=== PATIENT | female | born 1940 | race Caucasian/White ===

== ENCOUNTER 2016-07-10 06:02 | Inpatient (IN) | payer MEDICARE, OTHER ==
[2016-07-10] VITALS (12 sets, daily range): BP systolic 93–144; BP diastolic 41–81; PULSE 86–128; RESP 16–26; O2SAT 87–97
[~2016-07-10] VITALS: Ht 167.6 cm; Wt 92.6 kg
[~2016-07-10 06:02] MED LIST: ACET325C PO; ASPI-973 PO; CHOL400T PO; CLOP75TA28 PO; CYAN500T53 PO; DETROL LA4 M1 PO; DIPH25CA6 PO; ESOM40CA41 PO; ESTR1PAT80 TRANSDERM; FLAX100038 PO; FLUO10CA20 PO; FLUT16SP NS; GABA800T2 PO; GARL1TAB PO; GLUC-207 PO; LEVO100T6 PO; LOVA20TA PO; METO25TA99 PO; MULT-666 PO; MYCO500T3 PO; NITR0.4T SL; NYST15PO5 TP; ONDA4TAB12 PO; OXYC1TAB24 PO; PENT400T PO; POLY17PO6 PO; PYR50 PO; TRAM50TA2 PO; UBID300C PO; VITA1CAP16 PO; VITA400C19 PO
--- NOTE | 2016-07-10 06:08 | ED.REPORT ---
HPI-Chest Pain 40 and Over Date of Service Jul 10, 2016 ED Provider: Leodan Jennings MD A 75 year old female with a history of hypertension, hyperlipidemia, hemochromatosis, severe PVD and inclusion body myositis presents to the ED via EMS complaining of left sided chest pain that began yesterday. The pain became increasingly worse this morning and has been intermittent since onset. She also reports mild SOB, subjective fever, productive cough with yellow sputum and pain that radiates to her shoulder. Patient states that her pain was relieved by Tylenol and exacerbated by deep breath. Patient was admitted on 03/10 for PVD and was discharged s/p PCI on 03/15 in good condition. Patient is currently taking aspirin, Decadron and levothyroxine. She denies nausea, vomiting, dizziness, lightheadedness, palpitations, sore throat or rhinorrhea. Patient denies any recent injury, long travels or recent surgeries. Nursing Notes Stated Complaint: CHEST PAIN Nursing Notes Reviewed: Yes Allergies: Coded Allergies: pantoprazole (Verified Allergy, Intermediate, Nausea,Vomiting, 03/10/16) Penicillins (Verified Allergy, Unknown, Shortness of Breath, 03/10/16) Sulfa (Sulfonamide Antibiotics) (Verified Allergy, Unknown, 03/10/16) Scheduled Aspirin (Aspirin) 81 Mg Tablet 81 MG PO HS Cholecalciferol (Vitamin D3) (Vitamin D3) 2,000 Unit Capsule 2,000 UNIT PO DAILY Dexamethasone (Dexamethasone) 1 Mg Tab 2 MG PO DAILY Esomeprazole Magnesium (Nexium) 40 Mg Capsule.dr 40 MG PO BIDAC NEEDS TO TAKE NEXIUM! GENERIC CAUSES UPSET STOMACH! Gabapentin (Gabapentin) 800 Mg Tablet 800 MG PO HS Garlic (Garlic) 1 Each Tablet 1 EACH PO DAILY Gluc/MSM/C/[place]/Manganese/Kayli (Joint Support Complex Softgel) 500-100 Mg Capsule 1 TAB PO DAILY Levothyroxine (Levothyroxine) 100 Mcg Tablet 100 MCG PO QPM Losartan Potassium (Cozaar) 25 Mg Tablet 25 MG PO DAILY Lovastatin (Lovastatin) 20 Mg Tablet 20 MG PO HS Metoprolol Succinate ER (Metoprolol Succinate ER) 25 Mg Tab.er.24h 25 MG PO HS Mirtazapine (Mirtazapine) 7.5 Mg Tablet 7.5 MG PO HS Multivitamin (Once Daily) 1 Each Tablet 1 EACH PO DAILY Mycophenolate Mofetil (Mycophenolate Mofetil) 500 Mg Tablet 1,000 MG PO BID 3pm,3am [place]-3/Dha/Epa/Fish Oil ([place] 3 500 Softgel) 500 Mg (200 Mg-300 Mg)-1,000 Mg Capsule 1 EACH PO DAILY Pentoxifylline (Pentoxifylline) 400 Mg Tablet.er 400 MG PO TIDWM Polyethylene Glycol 3350 (Miralax) 17 Gm Powd.pack 17 GM PO MORNING Pyridoxine (Vitamin B-6) 50 Mg Tablet 100 MG PO DAILY Telmisartan/HCTZ 80-12.5 mg (Micardis HCT 80-12.5 mg) 1 Each Tablet 1 TABLET PO DAILY Tolterodine Tartrate ER (Detrol LA) 4 Mg Capsule 4 MG PO DAILY Ubidecarenone (Co Q10) 100 Mg Capsule 200 MG PO DAILY Scheduled PRN Acetaminophen (Acetaminophen) 325 Mg Capsule 325 MG PO Q4H PRN PRN For Pain Tramadol (Tramadol) 50 Mg Tablet 50 MG PO Q6H PRN PRN For Pain Miscellaneous Medications Estradiol Patch (Marta) 1 Each Patch.tdsw 1 EACH TRANSDERM General Time Seen by MD: 06:03 Chief Complaint Chest pain Hx Obtained From: Patient Arrived By: Ambulance Sudden in Onset?: No Onset Occurred: Just prior to arrival Symptom Duration: Since onset Location: : Chest left Quality: Painful Radiation: : Does not radiate Severity: Current: Moderate Severity: Maximum: Moderate Associated with: Reports: Fever (Subjective ), Shortness of Breath, Denies: Cough, non-productive, Cough, productive, Cough, with hemoptysis, Dizziness, Lightheaded, Nausea, Palpitations, Vomiting Pertinent Negative: Pt denies other symptoms Exacerbated by: Deep breath Relieved by: OTC medications (Tylenol) Recent Healthcare: No recent doctor visit, Recent hospitalization Risk Factors )( CAD Risk Stratification Hypertension Risk factors reviewed )( TAD Risk Stratification Hypertension Risk factors reviewed )( PE Risk Stratification Risk factors reviewed Past Medical History Past Medical History Inclusion body myositis Borderline diabetes [place] Hypertension Hemochromatosis Hyperlipidemia Depression Gastroesophageal reflux disease Past Surgical History 1. Appendectomy 2. Hysterectomy 3. Cholecystectomy 4. Section 5. ORIF, Right Knee Family History Father - at age 53 from an [place] Mother - at age 62 from Congestive Heart Failure Smoking History Former Smoker Social History Alcohol Use: Denies alcohol use Drug Use: Denies drug use Other Social History: Good social support, Local resident Ambulatory Status Wheelchair Review of Systems Constitutional: Denies: Chills, Fever Respiratory: Reports: Prod cough, yellow, Shortness of breath (Mild ) Cardiovascular: Reports: Chest pain (Left sided ), Denies: Palpitations GI: Denies: Abdominal pain, Nausea, Vomiting Neurologic: Denies: Change LOC, Dizziness, Lightheaded Complete sys rev & neg: except as marked. Physical Exam Initial Vital Signs Vital Signs (First) Date Time Temp Pulse Resp B/P Pulse Ox O2 Delivery O2 Flow Rate FiO2 07/10/16 06:18 36.6 114 24 95/41 92 Room Air 07/10/16 06:26 2 Initial VS: Reviewed Head / Eyes: Atraumatic, Normocephalic, PERRL Extremities: Vascular intact, Neuro intact, No swelling, No tenderness Skin: Warm, Dry, No cyanosis Neurologic: Alert, Oriented, Nonfocal Psychiatric: Mood/affect normal, Behavior normal, Normal thought content General/Constitutional: Awake, Alert Respiratory / Chest: Atraumatic, Breath sounds NL, Breath sounds = bilat, No respiratory distress CHEST: Chest pain reporducible upon exam Cardiovascular: Regular rhythm, Heart sounds NL, No murmurs Heart Rate / Rhythm: Positive: Tachycardia Abdomen: Atraumatic, Soft, Non-tender Interpretation & Diagnostics Lab Results Interpretation Result Diagram: 07/10/16 0620 07/10/16 0620 Test 07/10/16 06:20 07/10/16 09:10 White Blood Count 18.1th/mm3 (3.8-10.1) Red Blood Count 5.28mil/mm3 (3.90-5.20) Hemoglobin 14.2g/dL (12.0-15.6) Hematocrit 45.8% (35.0-46.0) Mean Corpuscular Volume 86.7fL (81-100) Mean Corpuscular Hemoglobin 26.9pg (27.0-35.0) Mean Corpuscular Hemoglobin Concent 31.0% (32.0-37.0) Red Cell Distribution Width 15.5% (12.3-15.4) Platelet Count 348bil/L (150-400) Neutrophils (%) (Auto) 83.6% (40-74) Lymphocytes (%) (Auto) 5.4% (14-46) Monocytes (%) (Auto) 10.2% (4-12) Eosinophils (%) (Auto) 0.4% (0-5) Basophils (%) (Auto) 0.1% (0-3) D-Dimer 1.5mg/L (<0.50) Sodium Level 143mEq/L (134-144) Potassium Level 4.0mEq/L (3.5-5.2) Chloride Level 100mEq/L (97-108) Carbon Dioxide Level 27mmol/L (18-29) Blood Urea Nitrogen 12mg/dL (8-27) Creatinine < 0.30mg/dL (0.57-1.00) Estimat Glomerular Filtration Rate 312mL/min (>59) Glucose Level 121mg/dL (60-99) Calcium Level 9.9mg/dL (8.5-10.1) Magnesium Level 1.8mg/dL (1.6-2.6) Total Bilirubin 0.5mg/dL (0.0-1.2) Aspartate Amino Transf (AST/SGOT) 24U/L (0-50) Alanine Aminotransferase (ALT/SGPT) 17U/L (0-32) Alkaline Phosphatase 91U/L (25-165) Troponin T 0.055ug/L (0.0-0.011) Pro-B-Type Natriuretic Peptide 476.5pg/mL (0-301) Total Protein 7.2g/dL (6.4-8.4) Albumin 3.6g/dL (3.4-5.0) Lactic Acid Level 1.4mmol/L (0.4-2.0) ECG Interpretation ECG Interpretation: Sinus Tachycardia Q waves in [address] elevation Time: 06:11 Interpreted by: ED physician Normal ECG Interpretation: No change from prior ECGs (Q waves unchanged) X-Ray Chest Interpretation Chest Xray Interpretation: IMPRESSION: New moderate dependent left pleural effusion is of uncertain etiology, with presumed retrocardiac compressive atelectasis. Superimposed pneumonia cannot be excluded. Dictated by: Bharath Feng M.D. on 07/10/2016 at 7:27 Interpretation / Wet Read by: Interpret - Radiologist CT Chest Interpretation IMPRESSION: 1. No evidence for central pulmonary embolism. 2. Partially loculated moderate left pleural effusion is of uncertain etiology, with patchy left lower lobe compressive atelectasis. 3. 3.8 x 3.0 cm posterior right lower lobe subpleural airspace opacity is of uncertain etiology. Differential diagnoses would include localized pneumonia versus underlying lung neoplasm. Pulmonary infarct is considered unlikely in the absence of any pulmonary embolism. 4. 3.1 x 2.5 cm complex cystic nodule in the left thyroid. Recommend dedicated thyroid ultrasound for further characterization, and to determine the need for image guided fine needle aspiration. Dictated by: Bharath Feng M.D. on 07/10/2016 at 8:26 Study type: CT pulm angiogram Interpretation / Wet Read by: Interpret - Radiologist Re-Eval/Medical Decision Med Decision/Clinical Course 75-year-old female history of hemachromatosis, hypertension, hyperlipidemia presenting with left-sided chest pain times one day. Also cough productive blood in sputum at times. She is being treated for bronchitis and is on oral steroids. Oxygen 88% on arrival requiring 2 L. D-dimer 1.5. Troponins 0.05 which is consistent with her baseline. White blood cell count is 18,000 and she is on steroids. CT [place] chest shows left pleural effusion which was not evident on x-ray in March of last year. No PE. Also has questionable pneumonia and cannot rule out malignancy. Patient will be treated with Levaquin for her pneumonia. Defer possible malignancy workup to hospitalist may need diagnostic thoracentesis vs bronchoscopy. EKG NSR. Given aspirin 324mg and will trend troponins. Will hold off on heparin gtt given hemoptysis and likely pulmonary source pending repeat troponins. She is placed on oxygen. We will admit to hospital. DNR/DNI per discussion with patient. Time of Eval: 09:03 Patient Status: Condition improved Re-Evaluation/Progress Note: Patient is rechecked. She is feeling much better. She is informed of her lab results, EKG results, X-ray results, CT results and diagnosis. Time of Eval: 09:06 Patient Status: Condition improved Re-Evaluation/Progress Note: All of the patient's questions are addressed. She understands and agrees with the treatment plan to admit. Code status is discussed. Patient is DNR/DNI. Consultation : Referral / Consult Name: Keller,Kirsten L DO Consulted With: Hospitalist Call Returned at: 10:43 Cell Room Supervisor: Will see patient, Agrees with eval, Agrees with plan, Accepts admit Counseled Regarding: Diagnosis, Lab results, Need for admission Discharge & Departure Primary Impression: Pleural effusion Additional Impressions: Elevated troponin Pneumonia Pneumonia type: due to unspecified organism Laterality: left Lung location : unspecified part of lung Qualified Code: J18.9 - Pneumonia, unspecified organism Disposition: ADMITTED TO HOSPITAL Discharge Condition All VS Reviewed: Yes Condition: Stable Referrals: Jamey Presley MD (PCP) Yuni Attestation Portions of this note were transcribed by Dannielle Dawson. I, Dr. Jennings personally performed the history, physical exam and medical decision-making; I reviewed and confirmed the accuracy of the information in the transcribed note. Signed by: Yuni Celestin, 07/10/16 1050. copies to: Jamey Presley MD, Ben M MD Jul 10, 2016 06:08 DANNIELLE DAWSON Jul 10, 2016 06:24
[2016-07-10] MEDS ORDERED: 0.9% Sodium Chloride 500 ML IV ONE (06:20)
[2016-07-10] MEDS ORDERED: Ketorolac 15 mg/mL Inj IVPUSH ONE (06:20)
[2016-07-10 06:34] LABS: BASOPHILS % (AUTO) 0.1 % (0-3); EOSINOPHILS % (AUTO) 0.4 % (0-5); MONOCYTES % (AUTO) 10.2 % (4-12); Mean Corpuscular Hemoglobin 26.9 pg (27.0-35.0); Mean Corpuscular Volume 86.7 fL (81-100); NEUTROPHILS % (AUTO) 83.6 % (40-74); Platelet Count 348 bil/L (150-400)
[2016-07-10 07:22] LABS: Magnesium 1.8 mg/dL (1.6-2.6)
--- NOTE | 2016-07-10 07:30 | DRSVH ---
PROCEDURE: X-RAY CHEST ONE VIEW, PORTABLE ([id number]) INDICATIONS: 75 year-old female with left chest pain since last night. TECHNIQUE: One view of the chest was acquired. COMPARISON: [facility], CR, XR CHEST 2V AP/PA AND LAT, 05/07/2016, 10:58 AM. [facility], CR, XR CHEST 1VW (PORTABLE), 03/10/2016, 12:18. [facility], CR, XR CHEST 1VW (PORTABLE), 11/28/2015, 18:35. FINDINGS: Surgical changes and devices: Cholecystectomy clips are again noted. Lungs and pleura: There is new moderate dependent left pleural effusion. No pneumothorax. Lung volume s are decreased, with right basilar atelectasis. There is more confluent retrocardiac opacity. Mediastinum: Mediastinal contours appear normal. Heart size is normal. There is aortic atheroscler osis. Bones and chest wall: No suspicious bony lesions. Overlying soft tissues appear unremarkable. IMPRESSION: New moderate dependent left pleural effusion is of uncertain etiology, with presumed retrocardiac com pressive atelectasis. Superimposed pneumonia cannot be excluded. Dictated by: Bharath Feng M.D. on 07/10/2016 at 7:27 Approved by: Bharath Feng M.D. on 07/10/2016 at 7:28
[2016-07-10 07:46] LABS: TROPONIN T 0.055 ug/L (0.0-0.011)
--- NOTE | 2016-07-10 08:40 | DRSVH ---
PROCEDURE: CT ANGIO CHEST PULMONARY EMBOLISM ([id number]) INDICATIONS: 75 year-old female with chest pain and elevated d-dimer level. TECHNIQUE: After the administration of intravenous contrast, 2 mm thick sections acquired from the pulmonary api tamika to the posterior costophrenic angles. 3-dimensional maximum intensity projection (MIP) coronal a nd sagittal reformats were then acquired through the thorax. For radiation dose reduction, the follo wing was used: automated exposure control, adjustment of mA and/or kV according to patient size. COMPARISON: None. FINDINGS: Image quality: Excellent. Pulmonary arteries: Pulmonary arteries are upper normal in size, and demonstrate no intraluminal khloe ling defects to suggest central pulmonary embolism. Lungs and pleura: There is patchy left lower lobe compressive atelectasis. On axial image 24, there i s 3.8 x 3.0 cm posterior right lower lobe airspace opacity. There is partially loculated moderate-siz ed basal and lateral left pleural effusion. No pneumothorax. Central and peripheral airways are james nt. Mediastinum: There is mild cardiomegaly, without pericardial effusion. No mediastinal or hilar adeno tim. Thoracic aorta is normal in caliber and enhancement. Esophagus is normal in caliber, without hiatal hernia. Bones and chest wall: No suspicious bony lesions. Ribs and thoracic spine appear intact throughout. Thyroid gland contains a 3.1 x 2.5 cm thick walled cystic lesion in the left lobe. No axillary or supraclavicular adenopathy. Abdomen: The gallbladder is surgically absent. Other visualized upper abdominal solid organs appear n ormal in the early arterial phase of enhancement. IMPRESSION: 1. No evidence for central pulmonary embolism. 2. Partially loculated moderate left pleural effusion is of uncertain etiology, with patchy left lowe r lobe compressive atelectasis. 3. 3.8 x 3.0 cm posterior right lower lobe subpleural airspace opacity is of uncertain etiology. Diff erential diagnoses would include localized pneumonia versus underlying lung neoplasm. Pulmonary infar ct is considered unlikely in the absence of any pulmonary embolism. 4. 3.1 x 2.5 cm complex cystic nodule in the left thyroid. Recommend dedicated thyroid ultrasound for further characterization, and to determine the need for image guided fine needle aspiration. Dictated by: Bharath Feng M.D. on 07/10/2016 at 8:26 Approved by: Bharath Feng M.D. on 07/10/2016 at 8:38
[2016-07-10] MEDS ORDERED: ESTR1PAT44 TRANSDERM (08:52)
[2016-07-10] MEDS ORDERED: UBID100C27 PO (08:52)
[2016-07-10] MEDS ORDERED: CHOL200047 PO (08:52)
[2016-07-10] MEDS ORDERED: 0.9% Sodium Chloride 1,000 ML IV ONE (08:58)
[2016-07-10] MEDS ORDERED: LOVA20TA PO (08:59)
[2016-07-10] MEDS ORDERED: GARL1TAB PO (08:59)
[2016-07-10] MEDS ORDERED: DEX1 PO (08:59)
[2016-07-10] MEDS ORDERED: OMEG-145 PO (08:59)
[2016-07-10] MEDS ORDERED: TELM1TAB3 PO (08:59)
[2016-07-10] MEDS ORDERED: MIRT7.5T8 PO (08:59)
[2016-07-10] MEDS ORDERED: LOSA25TA2 PO (08:59)
[2016-07-10] MEDS ORDERED: levoFLOXacin Inj 750 MG in IV Premix 1 EACH IV ONE (09:00)
[2016-07-10] MEDS ORDERED: Senna-Docusate 8.6-50 mg Tablet PO PRN (10:45)
[2016-07-10] MEDS ORDERED: Polyethylene Glycol (PEG) 17 Gm Powder PO PRN (10:45)
[2016-07-10] MEDS ORDERED: Alum-Mag Hydrox-Simeth 30 mL Suspension PO PRN ×3 (10:45→14:23)
[2016-07-10] MEDS ORDERED: Ondansetron 2 mg/mL 2 mL Inj IVPUSH PRN ×3 (10:45→14:23)
[2016-07-10] MEDS ORDERED: Atropine 1 mg/10 mL (Code) Syringe IVPUSH PRN (10:45)
[2016-07-10 12:37] LABS: APPEARANCE,URINE CLEAR (CLEAR,HAZY); COLOR,URINE YELLOW (YELLOW); OCCULT BLOOD,URINE NEGATIVE (NEGATIVE); PH,URINE 5.5 (5.0-8.0); UROBILINOGEN,URINE NORMAL (NORMAL)
[2016-07-10] MEDS: 0.9% Sodium Chloride 1,000 ML IV SCH (13:17)
--- NOTE | 2016-07-10 13:22 | NUR ---
Admit: Arrived to [facility] @ approx 1140 via stretcher. Transferred from stretcher to bed. Son at bedside. Denies pain, SOB. IV fluids started. NPO status. Sponges provided for oral care. Alert & oriented. Bed in low locked position, bed rails up x2. Oriented to room and call light system.
--- NOTE | 2016-07-10 15:33 | PCM.HPMED ---
Subjective Date of Service Jul 10, 2016 Primary Provider: Admitting Physician: Kirsten Keller DO Primary Care Physician: Jamey Presley MD Attending Physician: Kirsten Keller DO Admit Status: From the Emergency Department, Full Admit Chief Complaint: Chest Pain. . History of Present Illness: Melly aPlmer is a 75-year-old female with a past medical history significant for inclusion body myositis, hemochromatosis, hypertension, hyperlipidemia, and prediabetes who presented to [facility] emergency Department for acute onset substernal chest pain. The patient reports that yesterday morning she began feeling "funny." She then began to express chest pain yesterday evening prior to bed. She describes the chest pain is substernal in location. The pain is sharp in quality and continuous. The patient had a pressure component when she arrived to the ER. She reports that she can change positions to make the pain less intense. She had accompanying left shoulder pain, left breast pain, and shortness of breath. She denies headache, vision changes, nausea, vomiting, palpitations, or diaphoresis. She has never had this before. She took Tylenol at home which gave her mild relief. Patient also endorses hemoptysis related to her recent bronchitis of which she is on dexamethasone and plans for follow-up/establish care with pulmonology next month. Of note, there is a reproducible component of her chest pain upon palpation of left upper chest. She has no other complaints. Vital signs in the ER: Temperature 36.6. Pulse 114. Respiratory rate 24. Blood pressure 95/41. Pulse ox 92% on room air. She was given 2 L NS, aspirin 324 mg 1, ketorolac 50 mg IV 1, and levofloxacin 750 [address] IV [address] 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 . Review of Systems: A comprehensive review of systems was conducted with the patient and found to be negative except as above in the History of Present Illness. . Allergies Coded Allergies: pantoprazole (Verified Allergy, Intermediate, Nausea,Vomiting, 03/10/16) Penicillins (Verified Allergy, Unknown, Shortness of Breath, 03/10/16) Sulfa (Sulfonamide Antibiotics) (Verified Allergy, Unknown, 03/10/16) Home Medications Acetaminophen 25 mg every 4 hours as needed for pain. Aspirin 81 mg daily at bedtime. Vitamin D3 2000 units daily. Dexamethasone 2 mg every other day. Nexium 40 mg twice a day before meals. Estradiol 1 patch. Gabapentin 800 mg daily at bedtime. Garlic 1 tablet daily. Joint support complex 1 tab daily. Levothyroxine 100 g daily at bedtime. Losartan 25 mg daily. Lovastatin 20 mg daily at bedtime. Metoprolol succinate 25 mg daily at bedtime. Mirtazapine 7.5 mg daily. Mycophenolate mofetil 1000 mg twice a day. [place]-3 complex 1 daily. Pentoxifylline 400 mg 3 times a day with meals. MiraLAX 17 g daily. Vitamin B6 100 mg daily. Detrol LA 4 mg daily. Tramadol 50 mg every 6 hours as needed for pain. CoQ10 200 mg daily. . PMH 1. Inclusion body myositis. 2. Hypertension. 3. Hyperlipidemia. 4. Prediabetes. 5. Hemochromatosis. 6. Depression and anxiety. 7. Gastroesophageal reflux disease 8. History of falls. 9. Restless leg syndrome. 10. Peripheral vascular disease status post arthroplasty. 11. Recent bronchitis on dexamethasone. 12. Overactive bladder. 13. Hypothyroidism. . Surgical History 1. Appendectomy. 2. Total abdominal hysterectomy with salpingo-oophorectomy. 3. Cholecystectomy. 4. Section x2. 5. ORIF, Right Knee. . Family History Father who had an 2 TN's, his first at 48 years old and the second at 52 years old which took his life. Mother who from CHF at 62 years old. Brother who had an TN in his 40s and has history of cardiac stenting. Sister in her 80s who is alive and healthy. . Social History Hx Alcohol Use: No Hx Substance Use: No Hx Tobacco Use: Yes Smoking Status: Former Smoker ( ~1PPD x 20 years, quit 30 years ago) Living Arrangement: with Family Additional Information The patient is and was for 49 years. She was born and raised in [place]. 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 She has one son and one daughter who are healthy. . Exam Vital Signs Vital Sign - Last Date Time Temp Pulse Resp B/P Pulse Ox O2 Delivery O2 Flow Rate FiO2 07/10/16 12:51 94 07/10/16 11:44 36.7 16 108/73 95 Nasal Cannula 0.50 Intake and Output 07/09/16 07/09/16 07/10/16 Cumulative From/Thru 15:00 23:00 07:00 07/10/16 06:18 - 07/10/16 06:35 Intake Total 1000 ml 1000 ml Balance 1000 ml 1000 ml Intake IV Total 1000 ml 1000 ml Exam General: Elderly female lying in bed and in no acute distress, well-developed, well-nourished, appropriately interactive. HEENT: Normocephalic, atraumatic. External ears without defect. Pupils equal, round, and reactive to light and accommodation. Anicteric sclerae, moist conjunctivae, and no lid lag. Oropharynx free of erythema and cobble stoning with moist mucosa. Neck: Supple with full range of motion. No jugular venous distension. No bruits. No lymphadenopathy or thyromegaly. Cardiovascular: Regular rhythm and rate without murmurs, rubs, or gallops appreciated. Mild tenderness to palpation in upper left chest. Pulmonary: Bibasilar fine crackles otherwise clear in upper lung garcia. No wheezes or rhonchi. Normal respiratory effort with no use of accessory muscles. Abdomen: Soft, obese, nontender, nondistended, bowel tones present. . No hepatosplenomegaly or masses appreciated. Extremities: No clubbing or cyanosis. Bilateral mild pitting edema to pretibial area. Skin: Normal temperature, turgor, and texture; no rash, ulcers, or subcutaneous nodules appreciated. Neurological: Cranial nerves grossly intact. Known gait impairment and uses walker. Psychiatric: Normal mood and affect. Alert and oriented to person, place, and time. . Osteopathic structural exam RIBS: Inhaler. 2 through 3 on the left Upper extremity: Latissimus dorsi hypertonicity on the left Lab and Diagnostics Labs Item Value Date Time Troponin T 0.055 ug/L *H 07/10/16 0620 Troponin T 0.020 ug/L H 07/10/16 1223 Result Diagram: 07/10/1661907/10/16 0620 X-Rays, CTs and MRIs CT ANGIO CHEST PULMONARY EMBOLISM IMPRESSION: 1. No evidence for central pulmonary embolism. 2. Partially loculated moderate left pleural effusion is of uncertain etiology, with patchy left lower lobe compressive atelectasis. 3. 3.8 x 3.0 cm posterior right lower lobe subpleural airspace opacity is of uncertain etiology. Differential diagnoses would include localized pneumonia versus underlying lung neoplasm. Pulmonary infarct is considered unlikely in the absence of any pulmonary embolism. 4. 3.1 x 2.5 cm complex cystic nodule in the left thyroid. Recommend dedicated thyroid ultrasound for further characterization, and to determine the need for image guided fine needle aspiration. Dictated by: Bharath Feng M.D. on 07/10/2016 at 8:26 Approved by: Bharath Feng M.D. on 07/10/2016 at 8:38 X-RAY CHEST ONE VIEW, PORTABLE IMPRESSION: New moderate dependent left pleural effusion is of uncertain etiology, with presumed retrocardiac compressive atelectasis. Superimposed pneumonia cannot be excluded. Dictated by: Bharath Feng M.D. on 07/10/2016 at 7:27 Approved by: Bharath Feng M.D. on 07/10/2016 at 7:28 . 12-lead ECG EKG: Sinus tachycardia, heart rate 113, normal intervals, borderline normal axis , poor R-wave progression, no pathological Q waves or acute ischemic changes such as ST elevation or depression. . Assessment & Plan Melly Palmer is a 75-year-old female with a past medical history significant for inclusion body myositis, hemachromatosis, hypertension, hyperlipidemia, and prediabetes who presented to [facility] emergency Department for acute chest pain. 1. Acute chest pain, present on admission. Active. - Patient presented with substernal chest pain radiating to left shoulder and left breast with accompanying shortness of breath. Of note, there is a reproducible component of chest pain in left upper chest and patient does have hemoptysis related to recent bronchitis with plan for follow-up/establish care with pulmonology next month. - Cardiac risk factors include: Hypertension, hyperlipidemia, prediabetes, significant family history, age, and former smoker. - Differential diagnosis includes: ACS versus costochondritis versus pleural effusion versus musculoskeletal. Ruled out pulmonary emboli. - EKG showed no pathological Q waves or acute ischemic changes, as above. - Troponin initially elevated at 0.055. Serial troponin 3. - CTA showed no evidence of PE. - Received aspirin 324 mg 1. Continue aspirin 81 mg daily. - Continue beta isabella with metoprolol succinate 25 mg daily. - Ordered sublingual nitroglycerin and morphine as needed for chest pain. - Ordered PRN EKG as needed for chest pain. - Ordered echocardiogram, pending. - Ordered fasting lipid panel with morning labs. - Consider NM stress test pending cardiology recommendations. - Nothing by mouth pending cardiology recommendations. - Consider thoracentesis for loculated moderate-sized basal and lateral left pleural effusion if cardiac work-up negative. - Discussed patient with cardiology, Dr. Mortensen, who will see the patient. 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 Chronic problems: 2. History of recent bronchitis on steroids. Presumed stable. - Patient has planned follow-up/establish care next month with pulmonology [facility] in [place]. - Continue dexamethasone 2 mg every other day. - Received levofloxacin 750 mg x 1 in ED. Started azithromycin 500mg IV. - Consider thoracentesis for loculated moderate-sized basal and lateral left pleural effusion if cardiac work-up negative. - Leukocytosis thought to be secondary to chronic glucocorticoid therapy. - Continue to monitor for signs of infection. 3. Hyperlipidemia, chronic. Presumed stable. - Continue atorvastatin equivalent per pharmacy. 4. Hypertension, chronic. Presumed stable. - Continue losartan 25 mg daily and metoprolol succinate 25 mg daily at bedtime. 5. Prediabetes, chronic. Presumed stable. - Hemoglobin A1c 5.7% on 11/2015. Repeat hemoglobin A1c pending. - Continue heart healthy/carbohydrate consistent diet when appropriate for PO intake. 6. Depression and anxiety, chronic. Presumed stable. - Continue mirtazapine 7.5 mg daily. 7. Gastroesophageal reflux disease, chronic. Presumed stable. - Held Nexium as FDA warnings that this may increase risk of heart attack and stroke. - Ordered famotidine 40 mg twice a day, Tums and Maalox as needed. - GI cocktail has worked in the past for acid reflux may resort to this if the above is not effective. 8. Inclusion body myositis, chronic. Presumed stable. - Continue Mycophenolate mofetil 1000 mg twice a day and vitamin B6 100 mg daily. 9. Restless leg syndrome, chronic. Presumed stable. - Continue gabapentin daily at bedtime and tramadol 50 mg every 6 hours as needed for pain. 10. Peripheral vascular disease status post arthroplasty, chronic. Presumed stable. - Continue pentoxifylline 400 mg 3 times a day with meals. 11. Hypothyroidism, chronic. Presumed stable. - Continue levothyroxine 100 g daily at bedtime. 12. Hemochromatosis, chronic. Presumed stable. - Monitor hemoglobin and hematocrit daily. 13. Overactive bladder, chronic. Presumed stable. - Continue Detrol LA 4 mg daily. 14. Pleuritis secondary to somatic dysfunction -Patient responded well to OMT PRN antiemetics: Zofran and Maalox. PRN bowel regimen: Senna and MiraLAX. PRN analgesics: Tylenol. Patient is admitted under inpatient status with expected length of stay greater than 2 midnights due to severity of presenting symptoms, risk of adverse event, and complexity of treatment plan. . . Resuscitation Status: DNR/DNI:Do Not Resuscitate/Intubate Attending Statement The patient was seen and examined together with Dr. Manning on 07/10/2016 and I have added additional information to the note above. Ivelisse Manning DO Jul 10, 2016 15:33 Kirsten Keller DO Jul 10, 2016 19:33
--- NOTE | 2016-07-10 16:25 | DRSVH ---
[facility] [address] [place] [address] Echocardiogram Report Name: RAI LOWERY Date: 07/10/2016 Height: 66 in Hospital Exam Location: [facility] Weight: 204 lb Gender: Female BSA: 2.0 m2 : 1940 Age: 75 yrs BP: 100/68 mmHg Reason For Study: Chest pain History: GERD, HTN, Hyperlipidemia Performed By: Evonne Mccarty Referring Physician: Dr. Jamey Presley Interpretation Summary 1. Normal left ventricular size with mild to moderately increased wall thickness and normal systolic function (estimated EF is 60-65%). 2. The right ventricle is not optimally visualized to estimate size. However, the systolic function appears grossly normal. 3. No evidence for significant valvular pathology 4. Left pleural effusion There is no old study for comparison Procedure: A two-dimensional transthoracic echocardiogram with color flow and Doppler was performed. The study quality was technically adequate. A contrast injection of Definity was performed to improve assessment of LV function. There is no prior echocardiogram noted for this patient. The patient was in normal sinus rhythm during the exam. The patient had frequent PVCs during the exam. Left Ventricle: Left ventricular wall thickness is mild-moderately increased. The left ventricle is normal in size. Mildly elevated outflow tract velocities. The ejection fraction is estimated to be 60-65%. There are no focal wall motion abnormalities. Assessment of diastolic parameters indicates normal left ventricular diastolic function and normal filling pressures. Right Ventricle: The right ventricle grossly appears normal in size with probable normal systolic function. Atria: The left atrial size is normal. Right atrium not well visualized. The right atrium grossly appears normal in size. Cannot entirely rule out a small PFO. Mitral Valve: There is mild mitral annular calcification. There is no mitral regurgitation noted. Aortic Valve: The aortic valve is mildly calcified. The aortic valve is trileaflet. The aortic valve opens well. No aortic regurgitation is present. Tricuspid Valve: The tricuspid valve leaflets are thin and pliable. There is trace tricuspid regurgitation. The right ventricular systolic pressure is estimated at 51 mmHg assuming a right atrial pressure of 8 mm Hg. Pulmonic Valve: The pulmonic valve leaflets are thin and pliable; valve motion is normal. There is a trace or physiologic amount of pulmonic regurgitation. Great Vessels: The aortic root is normal size. The ascending aorta is normal in size. The IVC is of normal diameter and collapses less than 50% with a sniff. This suggests a right atrial pressure of 8 mm Hg. Pericardium/ Pleura There is no pericardial effusion. There is a moderate left-sided pleural effusion. The effusion appears somewhat organized. MMode/2D Measurements & Calculations LVIDd: 4.4 cm LA dimension: 4.4 cm RA long axis LVOT diam LVIDs: 2.8 cm FS: 37.4 % LA A2 area: 18.0 cm RA area Ao root diam EPSS: 0.32 cm LA A4 area: 23.4 cm IVSd: 1.4 cm LA length (vol): 6.2 cm : 14.1 cm asc Aorta LVPWd: 1.2 cm LA vol: 57.4 ml RA vol: 36.2 mlDiam: 3.0 cm LA vol index RA : 18.0 mm2 IVC diam: 2.1 cm LV kelley. diameter/BSA LV sys. diameter/BSA (cm/m^2): 2.2 (cm/m^2): 1.4 Doppler Measurements & Calculations Ao V2 max MV E max jasson MV E/A: 1.1 TR max jasson : 167.5 cm/sec : 101.6 cm/sec Med Peak E' Jasson : 329.5 cm/sec Ao max PG MV A max jasson TR max PG : 11.2 mmHg : 94.6 cm/sec E/E' med: 12.9 : 43.4 mmHg Ao mean PG MV P1/2t: 47.0 msec Lat Peak E' Jasson PA V2 max : 91.4 cm/sec LVOT Max Jasson E/E' lat: 10.6 PA mean PG : 110.7 cm/sec E/e' average PA Accel Time EDOUARD(I,D): 3.3 cm MV A dur: 0.10 sec: 0.09 sec sev ratio MV dec time MV P1/2t max jasson Ao V2 mean LV V1 max PG : 0.16 sec : 107.6 cm/sec MVA(P1/2t): 4.7 cm2 Ao V2 VTI: 29.2 cmLV V1 VTI EDOUARD(V,D): 3.0 cm2 : 20.8 cm PA V2 mean EDOUARD indexed to BSA : 60.6 cm/sec (cm^2/m^2): 1.6 Reading Physician:04:24 PM
[2016-07-10] MEDS: Pentoxifylline 400 mg ER12 Tablet PO SCH (17:04)
--- NOTE | 2016-07-10 18:28 | NUR ---
Telemetry: Notified by athletic monitor patient having burst of PSVT to 160-170s. Hospitalist and Cardiology aware. Awaiting Metoprolol from pharmacy.
[2016-07-10] MEDS: MYCOPHENOLATE MOFETIL 500 MG PO SCH (18:33)
--- NOTE | 2016-07-10 19:30 | CONS ---
[address] [address] CONSULTATION REPORT PATIENT: RAI LOWERY : 1940 MR#: [id number] ADMIT: 07/10/2016 JOB ID: [id number] DATE OF SERVICE: 07/10/2016 REASON FOR CONSULTATION: I was asked by the hospital team to consult on this patient due to chest pain. HISTORY OF PRESENT ILLNESS: The patient is a 75-year-old woman with past medical history significant for hypertension, hyperlipidemia, peripheral vascular disease and including body myositis. She says starting yesterday she started developing left-sided chest pain. This pain is worse with deep inspiration and she also has pain in her left shoulder. The pain occurs at rest and also when she is moved on her side it is quite significant. She also reports some increased shortness of breath as well as a productive cough. She had low-grade fever. Sputum is described as yellow in color. Prior to yesterday, she has not had any problems with chest pressure, chest tightness with exertion, increased dyspnea on exertion, orthopnea or PND. She does have problems with GERD when she is in the recumbent position, however, denies orthopnea. She denies any palpitations, presyncope, syncope. PAST MEDICAL HISTORY/PROBLEM LIST: 1. History of hypertension. 2. History of hyperlipidemia. 3. History of peripheral vascular disease status post treatment with angioplasty in the past. HOME MEDICATIONS: 1. Aspirin 81 mg a day. 2. Dexamethasone 1 mg tab two daily. 3. Nexium. 4. Gabapentin. 5. Levothyroxine. 6. Losartan. 7. Lovastatin. 8. Metoprolol succinate 25 q.h.s. 9. Pentoxifylline. 10. Pyridoxine. 11. Telmisartan. 12. Hydrochlorothiazide. 13. Detrol LA. ALLERGIES: 1. PANTOPRAZOLE. 2. PENICILLINS. 3. SULFA. SOCIAL HISTORY: Former smoker. No significant alcohol use. FAMILY HISTORY: Father had an NC in his 50s. Mother of congestive heart failure. REVIEW OF SYSTEMS: Overall health: Low-grade fevers. No night sweats. GI: No problems with ulcers, blood in stool. : No dysuria, hematuria. Per Pulmonary, cough productive of yellow sputum. Some increased shortness of breath. Heme: No easy bruising or bleeding. Neuro: No chronic headaches. Endocrine: No heat or cold intolerance. Cardiac: As per HPI. Heme: No easy bruising or bleeding. ENT: No difficulty swallowing or sore throat. Ophtho: No vision changes. Psych: No acute issues. All other review of systems on a 12 review of systems are negative. PHYSICAL EXAMINATION: Blood pressure is 108/73, heart rate 88, she is afebrile. Sats are 95% on 0.5 L. General: Appearing tired but in no acute distress. Speaking in full sentences without apparent shortness of breath. Head and neck exam: Normocephalic, atraumatic. Neck: Some pulsations related to irregular, likely supraventricular beats. Heart:Her heart exam has bursts of irregularity on exam Lungs: She is very difficult to examine due to pain, but I do appreciate decreased breath sounds at the left base. Abdomen is soft, nondistended. Back: No CVA tenderness to palpation. Extremity: There is some edema. Her toes are cool. I cannot appreciate distal pulses on her. Neuro: Alert and oriented. ENT: Mucous membranes moist. No erythema. Vision grossly intact. CURRENT MEDICATIONS: 1. Mirtazapine. 2. Detrol LA. 3. Atorvastatin. 4. Tramadol. 5. Vitamin B6. 6. [place]. 7. Losartan. 8. Levothyroxine. 9. Aspirin. She was given a dose of antibiotic in the ED for possible pneumonia. LABORATORIES: Today show sodium 143, potassium 4, BUN and creatinine 12 and less than 0.3. Troponins initially 0.055 down to indeterminate. Back in March when she had her foot revascularization she also had a troponin of 0.057 as well as some in the indeterminate range. Labs show white count 18.1. H and H 14.2 and 45.8, platelets of 348,000 (she was on steroids at this time.) Chest x-ray shows new moderate dependent left pleural effusion of uncertain etiology with retrocardiac compressive atelectasis. A CT angio also confirms the presence of a partially loculated moderate left pleural effusion of uncertain etiology with patchy left lower lobe compressive atelectasis. Also noted was a posterior right lobe subpleural airspace opacity of uncertain etiology with differential diagnosis including localized pneumonia versus underlying neoplasm. IMPRESSION: The patient came in since yesterday with chest discomfort worse with deep inspiration, worse with movement, worse with lying on her left side, some shoulder discomfort as well which may be related to the left-sided pain or independent of that. She has borderline elevated troponins at this point. Her EKG shows sinus rhythm with nonspecific T-wave changes which is unchanged from a previous EKG. Limited review of the echo prior to formal interpretation shows LV systolic function is within normal limits. She tells me that she got antibiotics in the ED. She has a productive cough. She has a pleural effusion. I would surmise that the patient the chest discomfort since it is pleuritic in nature might be related to that effusion. PLANS/RECOMMENDATION: 1. I would continue with her current cardiac medications. 2. I would make sure that if pneumonia is suspected, that she be treated for it and the effusion evaluated for a parapneumonic effusion if it is relevant. 3. If there is still some concern about cardiac issues once she has improved from a clinical perspective, consider stress testing. I spent 50 minutes reviewing her chart and old records, speaking with and examining the patient and speaking with the hospitalist team about my thoughts/ recommendations ADDI
--- NOTE | 2016-07-10 19:35 | PCM.PROC ---
Procedure Note Date of Service: Jul 10, 2016 Procedure: Procedure: Osteopathic Manipulative Treatment Subjective: Patient has been having continued on a 10 left-sided chest pain which can be relieved positionally. Patient states that if she shifts or position sometimes she can relieve the pain however sometimes if she shifts her position he can increase the pain as well. Risks and benefits of OMT were explained to the patient and verbal consent obtained. Osteopathic Structural Exam: Ribs: Inhaled ribs 2 through 3 on the left Upper extremities: Latissimus dorsi hypertonicity in the left Patient responded well to treatment. Patient stated that her pain was significantly relieved after the treatment. Osteopathic treatment modalities used: Myofascial release, BLT, and soft tissue technique Provider and Wood Borer: Dr. Ivelisse Manning was present during the procedure. Kirsten Keller DO Jul 10, 2016 19:35
[2016-07-10] MEDS: MeTOProlol XL 25 mg ER24 Tablet PO SCH (20:54)
[2016-07-11] VITALS (9 sets, daily range): BP systolic 115–129; BP diastolic 62–79; PULSE 85–142; RESP 20–22; O2SAT 93–98
--- NOTE | 2016-07-11 01:34 | NUR ---
heart rate patient in atrial fib / flutter per residential monitor. rate 140. sustained >20 min. bp 129/79. notified night resident via cook paging. patient asymptomatic. Addendum: 07/11/16 at 0203 by ADRIÁN LOWERY RN per Dr Russ's orders. medicated with diltiazem 20mg slow iv push. per residential monitor patient converted back to SR 100. although rate is variable . bp 102/66.
[2016-07-11] MEDS ORDERED: Diltiazem 5 mg/mL 5 mL Inj IVPUSH ONE (01:45)
[2016-07-11] MEDS ORDERED: ALPRAZolam 0.5 mg Tablet PO ONE ×2 (02:15→23:45)
[2016-07-11] MEDS: MYCOPHENOLATE MOFETIL 500 MG PO SCH ×2 (04:14→15:26)
[2016-07-11] MEDS: 0.9% Sodium Chloride 1,000 ML IV SCH (04:14)
--- NOTE | 2016-07-11 05:23 | NUR ---
anxiety patient very anxious about oxymask requested anxiety pill given support. 4
[2016-07-11 07:07] LABS: BASOPHILS % (AUTO) 0.1 % (0-3); EOSINOPHILS % (AUTO) 0.1 % (0-5); Mean Corpuscular Hemoglobin 27.4 pg (27.0-35.0); Mean Corpuscular Volume 87.8 fL (81-100); NEUTROPHILS % (AUTO) 87.4 % (40-74); Platelet Count 330 bil/L (150-400)
[2016-07-11 07:14] LABS: INR 1.05 ratio
[2016-07-11] MEDS: Pentoxifylline 400 mg ER12 Tablet PO SCH ×3 (09:40→18:10)
[2016-07-11] MEDS: Azithromycin Inj 500 MG in Dextrose 5% w/Vial Mate 250 ML IV SCH (09:41)
[2016-07-11] MEDS: Tolterodine ER 4 mg ER24 Capsule PO SCH (09:42)
[2016-07-11] MEDS: Polyethylene Glycol (PEG) 17 Gm Powder PO SCH (09:43)
--- NOTE | 2016-07-11 10:23 | PCM.PNMED ---
Subjective Date of Service Jul 11, 2016 Subjective Melly Palmer is a 75-year-old female with a past medical history significant for inclusion body myositis, hemochromatosis, hypertension, hyperlipidemia, and prediabetes who presented to [facility] emergency Department for acute onset substernal chest pain. Overnight: Episode of atrial flutter/atrial fibrillation and patient was given 20 mg IV diltiazem and converted back into sinus rhythm. Today, Ms. Palmer does not have chest pain or dyspnea. She continues to have a productive cough with blood-tinged sputum. She feels fatigued this morning. She does not have fever or chills, abdominal pain, or dysuria. Exam Vital Signs Vital Sign - Last Date Time Temp Pulse Resp B/P Pulse Ox O2 Delivery O2 Flow Rate FiO2 07/11/16 10:07 110 07/11/16 06:11 37.0 22 127/76 98 OxyMask 5.00 Intake and Output 07/10/16 07/10/16 07/11/16 Cumulative From/Thru 15:00 23:00 07:00 07/10/16 06:18 - 07/11/16 06:39 Intake Total 1000 ml 200 ml 850 ml 3050 ml Output Total 400 ml 400 ml Balance 1000 ml 200 ml 450 ml 2650 ml Intake Oral 200 ml 250 ml 450 ml IV Total 1000 ml 600 ml 2600 ml Output Urine Total 400 ml 400 ml # Voids 2 2 # Bowel Movements 0 0 Exam General: Elderly female lying in bed and in no acute distress, well-developed, well-nourished, appropriately interactive. HEENT: Normocephalic, atraumatic. External ears without defect. Pupils equal, round, and reactive to light and accommodation. Anicteric sclerae, moist conjunctivae, and no lid lag. Oropharynx free of erythema and cobble stoning with moist mucosa. Neck: Supple with full range of motion. No jugular venous distension. No bruits. No lymphadenopathy or thyromegaly. Cardiovascular: Regular rhythm and rate without murmurs, rubs, or gallops appreciated. Mild tenderness to palpation in upper left chest. Pulmonary: Bibasilar fine crackles worse on the left than right, otherwise clear in upper lung garcia. No wheezes or rhonchi. Normal respiratory effort with no use of accessory muscles. Abdomen: Soft, obese, nontender, nondistended, bowel tones present. . No hepatosplenomegaly or masses appreciated. Extremities: No clubbing or cyanosis. Bilateral mild pitting edema to pretibial area. Skin: Normal temperature, turgor, and texture; no rash, ulcers, or subcutaneous nodules appreciated. Neurological: Cranial nerves grossly intact. Known gait impairment and uses walker. Psychiatric: Normal mood and affect. Alert and oriented to person, place, and time. IVs and Medications Medications Reviewed: Medications were reviewed in detail Lab and Diagnostics Result Diagram: 07/11/1663907/11/16 0640 X-Rays, CTs and MRIs CT ANGIO CHEST PULMONARY EMBOLISM IMPRESSION: 1. No evidence for central pulmonary embolism. 2. Partially loculated moderate left pleural effusion is of uncertain etiology, with patchy left lower lobe compressive atelectasis. 3. 3.8 x 3.0 cm posterior right lower lobe subpleural airspace opacity is of uncertain etiology. Differential diagnoses would include localized pneumonia versus underlying lung neoplasm. Pulmonary infarct is considered unlikely in the absence of any pulmonary embolism. 4. 3.1 x 2.5 cm complex cystic nodule in the left thyroid. Recommend dedicated thyroid ultrasound for further characterization, and to determine the need for image guided fine needle aspiration. Approved by: Bharath Feng M.D. on 07/10/2016 at 8:38 X-RAY CHEST ONE VIEW, PORTABLE IMPRESSION: New moderate dependent left pleural effusion is of uncertain etiology, with presumed retrocardiac compressive atelectasis. Superimposed pneumonia cannot be excluded. Approved by: Bharath Feng M.D. on 07/10/2016 at 7:28 PROCEDURE: X-RAY CHEST ONE VIEW, PORTABLE IMPRESSION: 1. Moderate to large loculated left pleural effusion similar to prior CT scan. 2. Persistent basilar airspace opacity likely compressive atelectasis. Continued radiographic surveillance to resolution is recommended. 3. Masslike opacity within the right lower lobe is unchanged. Continued radiographic surveillance to resolution is recommended. Approved by: Greg Fontana M.D. on 07/11/2016 at 11:31 12-lead ECG EKG: Sinus tachycardia, heart rate 113, normal intervals, borderline normal axis , poor R-wave progression, no pathological Q waves or acute ischemic changes such as ST elevation or depression. . Cardiac Echo Impressions Echocardiogram Report Interpretation Summary 1. Normal left ventricular size with mild to moderately increased wall thickness and normal systolic function (estimated EF is 60-65%). 2. The right ventricle is not optimally visualized to estimate size. However, the systolic function appears grossly normal. 3. No evidence for significant valvular pathology 4. Left pleural effusion There is no old study for comparison Reading Physician:04:24 PM Assessment & Plan Melly Palmer is a 75-year-old female with a past medical history significant for inclusion body myositis, hemachromatosis, hypertension, hyperlipidemia, and prediabetes who presented to [facility] emergency Department for acute chest pain. 1. Acute chest pain, present on admission. Active. - Patient presented with substernal chest pain radiating to left shoulder and left breast with accompanying shortness of breath. Of note, there is a reproducible component of chest pain in left upper chest and patient does have hemoptysis related to recent bronchitis with plan for follow-up/establish care with pulmonology next month. - Cardiac risk factors include: Hypertension, hyperlipidemia, prediabetes, significant family history, age, and former smoker. - Differential diagnosis includes: ACS versus costochondritis versus pleural effusion versus musculoskeletal. Ruled out pulmonary emboli. - EKG showed no pathological Q waves or acute ischemic changes, as above. - Troponin initially elevated at 0.055. Serial troponin 3 and downtrended. - CTA showed no evidence of PE. - Echocardiogram showed normal EF, normal systolic function, and no valvular abnormalities. A left pleural effusion was noted. - Masslike opacity within the right lower lobe and left pleural effusion are likely contributing to, if not the source of, patient's chest pain. - Received aspirin 324 mg 1. Continue aspirin 81 mg daily. - Continue beta isabella with metoprolol succinate 25 mg daily. - Ordered sublingual nitroglycerin and morphine as needed for chest pain. - Ordered PRN EKG as needed for chest pain. - Discussed patient with cardiology, Dr. Mortensen, who saw the patient and recommended addressing pulmonary concerns before doing a stress test. Outpatient education general manager is . Consider NM stress test after addressing pleural effusion. - Pleural chest ultrasound ordered to further assess pleural effusions, and based on results, will consult surgery tomorrow morning about possible chest tube placement. 2. Tachycardia, acute. - Atrial fibrillation and atrial flutter noted on telemetry this morning that converted back to sinus rhythm. Otherwise, sinus tachycardia with PACs and paroxysmal SVT. - Patient on metoprolol succinate 25 mg once daily at bedtime - Patient given diltiazem 20 mg IV push on 07/11/16 and converted back to sinus rhythm - Continue to monitor on telemetry 3. Left pleural effusion, acute, present on admission. Active. - See #1 above. 4. Masslike opacity within the right lower lobe. Active. - Differential diagnosis includes but not limited to: localized pneumonia versus underlying lung neoplasm - Patient is on azithromycin 500 mg IV started today as below. - Continued radiographic surveillance to resolution is recommended by radiology. Chronic problems: 5. History of recent bronchitis on steroids. Presumed stable. - Patient has planned follow-up/establish care next month with pulmonology [facility] in [place]. - Continue dexamethasone 2 mg every other day. - Received levofloxacin 750 mg x 1 in ED. Started azithromycin 500mg IV on 07/11. - Consider thoracentesis for loculated moderate-sized basal and lateral left pleural effusion as above - Leukocytosis thought to be secondary to chronic glucocorticoid therapy and possible pneumonia. - Continue to monitor 6. Hyperlipidemia, chronic. Presumed stable. - Fasting lipid panel: triglycerides 56, total cholesterol 139, Ll 73.8, HDL 54 - Continue atorvastatin equivalent per pharmacy. 7. Hypertension, chronic. Presumed stable. - Continue losartan 25 mg daily and metoprolol succinate 25 mg daily at bedtime. 8. Prediabetes, chronic. Presumed stable. - Hemoglobin A1c 5.7% on 11/2015. Repeat hemoglobin A1c pending. - Continue heart healthy/carbohydrate consistent diet when appropriate for PO intake. 9. Depression and anxiety, chronic. Presumed stable. - Continue mirtazapine 7.5 mg daily. 10. Gastroesophageal reflux disease, chronic. Presumed stable. - Held Nexium as FDA warnings that this may increase risk of heart attack and stroke. - Ordered famotidine 40 mg twice a day, Tums and Maalox as needed. - GI cocktail has worked in the past for acid reflux may resort to this if the above is not effective. 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 Presumed stable. - Continue Mycophenolate mofetil 1000 mg twice a day and vitamin B6 100 mg daily. 12. Restless leg syndrome, chronic. Presumed stable. - Continue gabapentin daily at bedtime and tramadol 50 mg every 6 hours as needed for pain. 13. Peripheral vascular disease status post arthroplasty, chronic. Presumed stable. - Continue pentoxifylline 400 mg 3 times a day with meals. 14. Hypothyroidism, chronic. Presumed stable. - CT chest showed a complex cystic nodule in the left thyroid and recommended dedicated thyroid ultrasound - Continue levothyroxine 100 g daily at bedtime. - TSH within normal limits - Thyroid ultrasound as an outpatient 15. Hemochromatosis, chronic. Presumed stable. - Monitor hemoglobin and hematocrit daily. 16. Overactive bladder, chronic. Presumed stable. - Continue Detrol LA 4 mg daily. 17. Pleuritis secondary to somatic dysfunction -Patient responded well to OMT PRN antiemetics: Zofran and Maalox. PRN bowel regimen: Senna and MiraLAX. PRN analgesics: Tylenol. Patient is admitted under inpatient status with expected length of stay greater than 2 midnights due to severity of presenting symptoms, risk of adverse event, and complexity of treatment plan. . . VTE Mechanical Devices: Intermittant Pneumatic CD Resuscitation Status: DNR/DNI:Do Not Resuscitate/Intubate Time spent 35 minutes Attending Statement I have seen and evaluated patient at bedside in addition to directly supervising care provided by resident physician. I agree with above documentation. Present during chest US which was not supportive of fluid amenable to drainage, consulted IR for second opinion, may consider surgical intervention based on patient's clinical course. Vicky Magdaleno DO Jul 11, 2016 10:23 Epifanio Quintana DO Jul 12, 2016 08:26
--- NOTE | 2016-07-11 10:59 | DRSVH ---
PROCEDURE: X-RAY CHEST ONE VIEW, PORTABLE ([id number]) INDICATIONS: cough TECHNIQUE: One view of the chest was acquired. COMPARISON: [facility], CR, XR CHEST 1VW (PORTABLE), 07/10/2016, 6:43. [facility], CR, XR CHEST 2V AP/PA AND LAT, 05/07/2016, 10:58 AM. [facility], CT, CT ANGIO CH EST PE, 07/10/2016, 8:18. FINDINGS: Surgical changes and devices: Cholecystectomy clips. Lungs and pleura: Partially loculated moderate large left pleural effusion similar to recent CT scan. There is persistent lower lobe compressive atelectasis. Rounded masslike opacity is seen within the right lower lobe unchanged from prior CT scan. Right lung otherwise clear. No pneumothorax. Mediastinum: Mediastinal contours appear normal. Heart size is normal. Bones and chest wall: No suspicious bony lesions. Overlying soft tissues appear unremarkable. IMPRESSION: 1. Moderate to large loculated left pleural effusion similar to prior CT scan. 2. Persistent basilar airspace opacity likely compressive atelectasis. Continued radiographic surveil lizzette to resolution is recommended. 3. Masslike opacity within the right lower lobe is unchanged. Continued radiographic surveillance to resolution is recommended. Dictated by: Khai MARTINEZA Interpreted: Greg Fontana MD on 07/11/2016 at 10:56 Transcribed by: MARIA G on 07/11/2016 at 10:59 Approved by: Greg Fontana M.D. on 07/11/2016 at 11:31
--- NOTE | 2016-07-11 12:53 | NUR ---
Social Work-initial assessment: Data:See initial assessment. Pt is a 75 y/o female who was admitted on 07/10/16 for Pneumonia per H&P. Pt's insurance is [employer] and PCP is Jamey Presley MD. EMR reviewed. Pt's readmission score is 3. SW met with pt and son Petr at bedside to discuss discharge planning, SW role explained. Pt is alert and oriented x3. Pt resides at home with her son who provides 24/7 care for pt. Pt uses an electric w/c at baseline and son helps with transfers. Pt is currently open with [facility] for RN and PT. SW confirmed with Viktor Arreola liaison [phone] and provided him with access. Pt has history at [facility] for SNF. 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 SW discussed DPOA/ advanced directive, son confirms they have completed this, SW encouraged a copy to be brought in. Son plans on transporting pt home at discharge. SW provided phone number and plan on white board in room. SW will continue to follow. Assessment:Pt who has 24/7 care and HH. Plan:Pt to discharge home with son to provide 24/7 care when medically stable. Pt will need resume HH orders through [facility] for RN and PT. SW will continue to follow. TOR Estrada Addendum: 07/11/16 at 1257 by LEONARDO MUNOZ SS Amended: Links added.
--- NOTE | 2016-07-11 14:00 | NUR ---
Tachycardia HR in the 150s, per tele monitor. HR has been going down to the 110s however has stayed in the 150s for a period of time. Pt asymptotic. made aware. Will continue to monitor,. call light within reach.
--- NOTE | 2016-07-11 19:28 | DRSVH ---
PROCEDURE: US CHEST/PLEURAL SONOGRAM INDICATIONS: assess loculated effusion COMPARISON: [facility], CR, XR CHEST 1VW (PORTABLE), 07/11/2016, 10:08. FINDINGS: Sonographic images of the left lung demonstrate a mild area of effusion with multiple area s of loculation and septation. No fluid is identified within the right lung. IMPRESSION: Loculated, septated small left pleural effusion. Dictated by: Jayashree Whitmore M.D. on 07/11/2016 at 19:26 Approved by: Jayashree Whitmore M.D. on 07/11/2016 at 19:27
[2016-07-11] MEDS: MeTOProlol XL 25 mg ER24 Tablet PO SCH (20:45)
[2016-07-12] VITALS (7 sets, daily range): BP systolic 127–162; BP diastolic 67–82; PULSE 78–108; RESP 20–22; O2SAT 89–99
[2016-07-12] MEDS: 0.9% Sodium Chloride 1,000 ML IV SCH ×2 (00:50→20:32)
[2016-07-12] MEDS: MYCOPHENOLATE MOFETIL 500 MG PO SCH ×2 (04:13→15:07)
[2016-07-12 07:15] LABS: BASOPHILS % (AUTO) 0.1 % (0-3); EOSINOPHILS % (AUTO) 0.3 % (0-5); MONOCYTES % (AUTO) 8.3 % (4-12); Mean Corpuscular Hemoglobin 26.8 pg (27.0-35.0); Mean Corpuscular Volume 88.1 fL (81-100); NEUTROPHILS % (AUTO) 87.3 % (40-74); Platelet Count 344 bil/L (150-400)
[2016-07-12] MEDS: Azithromycin Inj 500 MG in Dextrose 5% w/Vial Mate 250 ML IV SCH (07:39)
[2016-07-12] MEDS: Pentoxifylline 400 mg ER12 Tablet PO SCH ×3 (08:16→17:16)
[2016-07-12] MEDS: Tolterodine ER 4 mg ER24 Capsule PO SCH (08:16)
[2016-07-12] MEDS: Polyethylene Glycol (PEG) 17 Gm Powder PO SCH (08:36)
--- NOTE | 2016-07-12 09:41 | PCM.PNMED ---
Subjective Date of Service Jul 12, 2016 Subjective Melly Palmer is a 75-year-old female with a past medical history significant for inclusion body myositis, hemochromatosis, hypertension, hyperlipidemia, and prediabetes who presented to [facility] emergency Department for acute onset substernal chest pain. Overnight: Telemetry shows a lot of variability in patient's HR. She ranges from 90-160s. It is hard to discern when it is fast if there is atrial flutter or if it is sinus tachycardia. This morning, Ms. Palmer says that it is hard for her to take deep breaths. She continues to have a productive cough. She does not have chest pain or fever/ chills. Exam Vital Signs Vital Sign - Last Date Time Temp Pulse Resp B/P Pulse Ox O2 Delivery O2 Flow Rate FiO2 07/12/16 04:08 36.5 108 20 141/82 94 Nasal Cannula 1.50 07/11/16 15:53 97 Intake and Output 07/11/16 07/11/16 07/12/16 Cumulative From/Thru 15:00 23:00 07:00 07/10/16 06:18 - 07/12/16 06:27 Intake Total 1673 ml 588 ml 5311 ml Output Total 800 ml 1200 ml Balance 873 ml 588 ml 4111 ml Intake Oral 840 ml 1290 ml IV Total 833 ml 588 ml 4021 ml Output Urine Total 800 ml 1200 ml # Voids 2 # Bowel Movements 1 1 Exam General: Elderly female lying in bed and in no acute distress, well-developed, well-nourished, appropriately interactive. HEENT: Normocephalic, atraumatic. External ears without defect. Pupils equal, round, and reactive to light and accommodation. Anicteric sclerae, moist conjunctivae, and no lid lag. Oropharynx free of erythema and cobble stoning with moist mucosa. Neck: Supple with full range of motion. No jugular venous distension. No bruits. No lymphadenopathy or thyromegaly. Cardiovascular: Regular rhythm and rate without murmurs, rubs, or gallops appreciated. Mild tenderness to palpation in upper left chest. Pulmonary: Bibasilar fine crackles, otherwise clear in upper lung garcia. No wheezes or rhonchi. Normal respiratory effort with no use of accessory muscles. Abdomen: Soft, obese, nontender, nondistended, bowel tones present. . No hepatosplenomegaly or masses appreciated. Extremities: No clubbing or cyanosis. Bilateral mild pitting edema to pretibial area. Skin: Normal temperature, turgor, and texture; no rash, ulcers, or subcutaneous nodules appreciated. Neurological: Cranial nerves grossly intact. Known gait impairment and uses walker. Psychiatric: Normal mood and affect. Alert and oriented to person, place, and time. IVs and Medications Medications Reviewed: Medications were reviewed in detail Lab and Diagnostics Result Diagram: 07/12/1664407/12/16644 X-Rays, CTs and MRIs CT ANGIO CHEST PULMONARY EMBOLISM IMPRESSION: 1. No evidence for central pulmonary embolism. 2. Partially loculated moderate left pleural effusion is of uncertain etiology, with patchy left lower lobe compressive atelectasis. 3. 3.8 x 3.0 cm posterior right lower lobe subpleural airspace opacity is of uncertain etiology. Differential diagnoses would include localized pneumonia versus underlying lung neoplasm. Pulmonary infarct is considered unlikely in the absence of any pulmonary embolism. 4. 3.1 x 2.5 cm complex cystic nodule in the left thyroid. Recommend dedicated thyroid ultrasound for further characterization, and to determine the need for image guided fine needle aspiration. Approved by: Bharath Feng M.D. on 07/10/2016 at 8:38 X-RAY CHEST ONE VIEW, PORTABLE IMPRESSION: New moderate dependent left pleural effusion is of uncertain etiology, with presumed retrocardiac compressive atelectasis. Superimposed pneumonia cannot be excluded. Approved by: Bharath Feng M.D. on 07/10/2016 at 7:28 PROCEDURE: X-RAY CHEST ONE VIEW, PORTABLE IMPRESSION: 1. Moderate to large loculated left pleural effusion similar to prior CT scan. 2. Persistent basilar airspace opacity likely compressive atelectasis. Continued radiographic surveillance to resolution is recommended. 3. Masslike opacity within the right lower lobe is unchanged. Continued radiographic surveillance to resolution is recommended. Approved by: Greg Fontana M.D. on 07/11/2016 at 11:31 PROCEDURE: US CHEST/PLEURAL SONOGRAM IMPRESSION: Loculated, septated small left pleural effusion. Approved by: Jayashree Whitmore M.D. on 07/11/2016 at 19:27 12-lead ECG EKG: Sinus tachycardia, heart rate 113, normal intervals, borderline normal axis , poor R-wave progression, no pathological Q waves or acute ischemic changes such as ST elevation or depression. . Cardiac Echo Impressions Echocardiogram Report Interpretation Summary 1. Normal left ventricular size with mild to moderately increased wall thickness and normal systolic function (estimated EF is 60-65%). 2. The right ventricle is not optimally visualized to estimate size. However, the systolic function appears grossly normal. 3. No evidence for significant valvular pathology 4. Left pleural effusion There is no old study for comparison Reading Physician:04:24 PM Assessment & Plan Melly Palmer is a 75-year-old female with a past medical history significant for inclusion body myositis, hemachromatosis, hypertension, hyperlipidemia, and prediabetes who presented to [facility] emergency Department for acute chest pain. 1. Acute chest pain, present on admission. Active. - Patient presented with substernal chest pain radiating to left shoulder and left breast with accompanying shortness of breath. Of note, there is a reproducible component of chest pain in left upper chest and patient does have hemoptysis related to recent bronchitis with plan for follow-up/establish care with pulmonology next month. - Cardiac risk factors include: Hypertension, hyperlipidemia, prediabetes, significant family history, age, and former smoker. - Differential diagnosis includes: ACS versus costochondritis versus pleural effusion versus musculoskeletal. Ruled out pulmonary emboli. - EKG showed no pathological Q waves or acute ischemic changes, as above. - Troponin initially elevated at 0.055. Serial troponin 3 and downtrended. - CTA showed no evidence of PE. - Echocardiogram showed normal EF, normal systolic function, and no valvular abnormalities. A left pleural effusion was noted. - Masslike opacity within the right lower lobe and left pleural effusion are likely contributing to, if not the source of, patient's chest pain. - Received aspirin 324 mg 1. Continue aspirin 81 mg daily. - Continue beta isabella with metoprolol succinate 25 mg daily. - Ordered sublingual nitroglycerin and morphine as needed for chest pain. - Ordered PRN EKG as needed for chest pain. - Discussed patient with cardiology, Dr. Mortensen, who saw the patient and recommended addressing pulmonary concerns before doing a stress test. 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 Consider NM stress test after addressing pleural effusion. 2. Tachycardia, acute. - Atrial fibrillation and atrial flutter noted on telemetry this morning that converted back to sinus rhythm. Otherwise, sinus tachycardia with PACs and paroxysmal SVT. - Likely secondary to pneumonia and pleural effusion. - Patient on metoprolol succinate 25 mg once daily at bedtime and consider increasing tomorrow. - Patient given diltiazem 20 mg IV push on 07/11/16 and converted back to sinus rhythm - Continue to monitor on telemetry 3. Left pleural effusion, acute, present on admission. Active. - Pleural chest ultrasound shows a loculated left pleural effusion. - See #1 above. - Pulmonology consulted and following. Their time and recommendations are appreciated. - Hold off on surgical consultation and will continue to monitor patient and proceed with pulmonology's plan 4. Masslike opacity within the right lower lobe. Active. - Differential diagnosis includes but not limited to: localized pneumonia versus underlying lung neoplasm - Patient is on azithromycin 500 mg IV started today as below. - Continued radiographic surveillance to resolution is recommended by radiology. Chronic problems: 5. History of recent bronchitis on steroids. Presumed stable. - Patient has planned follow-up/establish care next month with pulmonology Located [facility] in [place]. - Leukocytosis thought to be secondary to chronic glucocorticoid therapy and possible pneumonia. - Start a dexamethasone taper 1.5 mg every other day 5 days, 1 mg every other day 5 days, 0.5 mg every other day 5 days then stop - Received levofloxacin 750 mg x 1 in ED. Started azithromycin 500mg IV on 07/11, and patient will be given 3rd dose tomorrow. Discontinue after tomorrow's dose. - Continue to monitor 6. Hyperlipidemia, chronic. Presumed stable. - Fasting lipid panel: triglycerides 56, total cholesterol 139, Ll 73.8, HDL 54 - Continue atorvastatin equivalent per pharmacy. 7. Hypertension, chronic. Presumed stable. - Continue losartan 25 mg daily and metoprolol succinate 25 mg daily at bedtime. 8. Prediabetes, chronic. Presumed stable. - Hemoglobin A1c 5.7% on 11/2015. Repeat hemoglobin A1c pending. - Continue heart healthy/carbohydrate consistent diet when appropriate for PO intake. 9. Depression and anxiety, chronic. Presumed stable. - Continue mirtazapine 7.5 mg daily. 10. Gastroesophageal reflux disease, chronic. Presumed stable. - Held Nexium as FDA warnings that this may increase risk of heart attack and stroke. - Ordered famotidine 40 mg twice a day, Tums and Maalox as needed. - GI cocktail has worked in the past for acid reflux may resort to this if the above is not effective. 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 Presumed stable. - Continue Mycophenolate mofetil 1000 mg twice a day and vitamin B6 100 mg daily. 12. Restless leg syndrome, chronic. Presumed stable. - Continue gabapentin daily at bedtime and tramadol 50 mg every 6 hours as needed for pain. 13. Peripheral vascular disease status post arthroplasty, chronic. Presumed stable. - Continue pentoxifylline 400 mg 3 times a day with meals. 14. Hypothyroidism, chronic. Presumed stable. - CT chest showed a complex cystic nodule in the left thyroid and recommended dedicated thyroid ultrasound - Continue levothyroxine 100 g daily at bedtime. - TSH within normal limits - Thyroid ultrasound as an outpatient 15. Hemochromatosis, chronic. Presumed stable. - Monitor hemoglobin and hematocrit daily. 16. Overactive bladder, chronic. Presumed stable. - Continue Detrol LA 4 mg daily. 17. Pleuritis secondary to somatic dysfunction -Patient responded well to OMT PRN antiemetics: Zofran and Maalox. PRN bowel regimen: Senna and MiraLAX. PRN analgesics: Tylenol. Patient is admitted under inpatient status with expected length of stay greater than 2 midnights due to severity of presenting symptoms, risk of adverse event, and complexity of treatment plan. . . VTE Mechanical Devices: Intermittant Pneumatic CD Resuscitation Status: DNR/DNI:Do Not Resuscitate/Intubate Time spent 35 minutes Attending Statement I have seen and evaluated patient at bedside in addition to directly supervising care provided by resident physician. I agree with above documentation. Vicky Magdaleno DO Jul 12, 2016 09:40 Epifanio Quintana DO Jul 13, 2016 08:17
--- NOTE | 2016-07-12 13:49 | PCM.CHPMED ---
Subjective Date of Service: Jul 12, 2016 Provider requesting consult: Epifanio Quintana DO Primary Physician: Admitting Physician: Kirsten Keller DO Primary Care Physician: Jamey Presley MD Attending Physician: Kirsten Keller DO Chief Complaint: Chief Complaint: Left pleural effusion and hemoptysis. . History of Present Illness: Pulmonology Consultation Note: Attending Dr. Tony HPI: Melly Palmer is a 75-year-old female with a past medical history significant for inclusion body myositis, hemochromatosis, hypertension, hyperlipidemia, and prediabetes who presented to [facility] Emergency Department for acute onset substernal chest pain on 07/09/16. The patient reports that yesterday morning she began feeling "funny in her chest." She then began to experience chest pain that evening prior to bed. She described the chest pain as substernal in location. The pain was sharp in quality and continuous. The patient had a pressure component when she arrived to the ER. She reports that she can change positions to make the pain less intense but not completely resolve the pain. There is a reproducible component of her chest pain upon palpation of left upper chest. She had accompanying left shoulder pain, left breast pain, and shortness of breath. She denies headache, vision changes, nausea, vomiting, palpitations, or diaphoresis. She has never had this before. She took Tylenol at home which gave her mild relief. She also received Toradol 50 mg IV 1 in the ED which decreased her pain significantly on admission. Her chest pain has now resolved and she only endorses mild tenderness. She also endorses productive cough of yellow sputum with one episode of approximately 1 teaspoon of hemoptysis mixed with sputum that was thought to be related to her recent diagnosis of bronchitis. She is on a dexamethasone taper of 2 mg every other day and plans to follow-up/ establish care with pulmonology at [facility] in [place] next month. She has never had hemoptysis before and it has now resolved. Exposure history: The patient was born and raised in [place], [place]. The patient is a former smoker with a 40 to 09-saxc-eigl history. She has had very little travel but has spent several days in [place], [place] ( Cryptococcus) and [place] (blastomycosis) for vacation. The patient has had pneumonia twice in her adult life. She never had pneumonia as a child. She has no exposures to dust, mold, or sand as far she knows. She has a home that was built in 1975 that she believes there may be asbestos on the popcorn ceiling. 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 Her was in the [place], however, [place]. She denies exposure to shipyards. . Review of Systems: A comprehensive review of systems was conducted with the patient and found to be negative except as above in the History of Present Illness. . H Past Medical History 1. Inclusion body myositis. 2. Hypertension. 3. Hyperlipidemia. 4. Prediabetes. 5. Hemochromatosis. 6. Depression and anxiety. 7. Gastroesophageal reflux disease 8. History of falls. 9. Restless leg syndrome. 10. Peripheral vascular disease status post arthroplasty. 11. Recent bronchitis on dexamethasone. 12. Overactive bladder. 13. Hypothyroidism. . Surgical History 1. Appendectomy. 2. Total abdominal hysterectomy with salpingo-oophorectomy. 3. Cholecystectomy. 4. Section x2. 5. ORIF, Right Knee. . Home Medications Acetaminophen 25 mg every 4 hours as needed for pain. Aspirin 81 mg daily at bedtime. Vitamin D3 2000 units daily. Dexamethasone 2 mg every other day. Nexium 40 mg twice a day before meals. Estradiol 1 patch. Gabapentin 800 mg daily at bedtime. Garlic 1 tablet daily. Joint support complex 1 tab daily. Levothyroxine 100 g daily at bedtime. Losartan 25 mg daily. Lovastatin 20 mg daily at bedtime. Metoprolol succinate 25 mg daily at bedtime. Mirtazapine 7.5 mg daily. Mycophenolate mofetil 1000 mg twice a day. Seaview-3 complex 1 daily. Pentoxifylline 400 mg 3 times a day with meals. MiraLAX 17 g daily. Vitamin B6 100 mg daily. Detrol LA 4 mg daily. Tramadol 50 mg every 6 hours as needed for pain. CoQ10 200 mg daily. . Allergies: Coded Allergies: atorvastatin (Verified Allergy, Intermediate, 07/11/16) Contraindicated pantoprazole (Verified Allergy, Intermediate, Nausea,Vomiting, 03/10/16) Penicillins (Verified Allergy, Unknown, Shortness of Breath, 03/10/16) Sulfa (Sulfonamide Antibiotics) (Verified Allergy, Unknown, 03/10/16) Family History Family History Father who had an 2 OH's, his first at 48 years old and the second at 52 years old which took his life. Mother who from CHF at 62 years old. Brother who had an OH in his 40s and has history of cardiac stenting. Sister in her 80s who is alive and healthy. . Social History Hx Alcohol Use: NoHx Substance Use: NoHx Tobacco Use: Yes Smoking Status: Former Smoker ( ~1PPD x 20 years, quit 30 years ago) Living Arrangement: with Family Additional Information The patient is and was for 49 years. She was born and raised in [place]. 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 She has one son and one daughter who are healthy. . Exam Vital Signs Vital Sign - Last Date Time Temp Pulse Resp B/P Pulse Ox O2 Delivery O2 Flow Rate FiO2 07/12/16 11:10 Supplement Oxygen 07/12/16 10:54 94 07/12/16 10:00 36.8 20 127/68 94 1.50 07/11/16 15:53 97 Intake and Output 07/11/16 07/11/16 07/12/16 Cumulative From/Thru 15:00 23:00 07:00 07/10/16 06:18 - 07/12/16 06:27 Intake Total 1673 ml 588 ml 5311 ml Output Total 800 ml 1200 ml Balance 873 ml 588 ml 4111 ml Intake Oral 840 ml 1290 ml IV Total 833 ml 588 ml 4021 ml Output Urine Total 800 ml 1200 ml # Voids 2 # Bowel Movements 1 1 General: Alert, Oriented X3, Cooperative, No Acute Distress Head: Normal Eyes: PERRLA, EOMI, Scleral Anicteric Nose: Mucous Membr Moist/[place] Mouth: Mouth Normal Neck: Supple, No Thyromegaly, Other (no lymphadenopathy) Chest & Lungs: Crackles (fine crackles at right lung base), Other (bronchial lung sounds on left, tenderness to palpation in upper left chest) Cardiovascular: Regular Rate/Rhythm, Normal S1, Normal S2, No Murmurs/Rubs/ Gallops Pulses: NL carotid, radial, femoral, DP, PT Abdomen: Non-tender, Non-distended, Normoactive bowel tones, Soft, Obese Genitourinary: Siu Absent Extremities: No cyanosis/clubbing/edma bilat Neurological: Grossly Neurologically Intact Lab and Diagnostics Labs Item Value Date Time Calcium Level 9.6 mg/dL 07/12/16644 Total Bilirubin 0.3 mg/dL 07/12/16644 Aspartate Amino Transf (AST/SGOT) 20 U/L 07/12/16644 Alanine Aminotransferase (ALT/SGPT) 15 U/L 07/12/16644 Alkaline Phosphatase 117 U/L 07/12/16644 Total Protein 5.8 g/dL L 07/12/16644 Albumin 3.0 g/dL L 07/12/16644 Result Diagram: 07/12/1664407/12/16644 X-Rays, CTs and MRIs US CHEST/PLEURAL SONOGRAM INDICATIONS: assess loculated effusion COMPARISON: [facility], CR, XR CHEST 1VW (PORTABLE), 07/11/2016, 10: 08. FINDINGS: Sonographic images of the left lung demonstrate a mild area of effusion with multiple areas of loculation and septation. No fluid is identified within the right lung. IMPRESSION: Loculated, septated small left pleural effusion. Dictated by: Jayashree Whitmore M.D. on 07/11/2016 at 19:26 Approved by: Jayashree Whitmore M.D. on 07/11/2016 at 19:27 X-RAY CHEST ONE VIEW, PORTABLE IMPRESSION: 1. Moderate to large loculated left pleural effusion similar to prior CT scan. 2. Persistent basilar airspace opacity likely compressive atelectasis. Continued radiographic surveillance to resolution is recommended. 3. Masslike opacity within the right lower lobe is unchanged. Continued radiographic surveillance to resolution is recommended. Dictated by: Khai Barbosa RR Interpreted: Greg Fontana MD on 07/11/2016 at 10:56 Transcribed by: MARIA G on 07/11/2016 at 10:59 Approved by: Greg Fontana M.D. on 07/11/2016 at 11:31 CT ANGIO CHEST PULMONARY EMBOLISM IMPRESSION: 1. No evidence for central pulmonary embolism. 2. Partially loculated moderate left pleural effusion is of uncertain etiology, with patchy left lower lobe compressive atelectasis. 3. 3.8 x 3.0 cm posterior right lower lobe subpleural airspace opacity is of uncertain etiology. Differential diagnoses would include localized pneumonia versus underlying lung neoplasm. Pulmonary infarct is considered unlikely in the absence of any pulmonary embolism. 4. 3.1 x 2.5 cm complex cystic nodule in the left thyroid. Recommend dedicated thyroid ultrasound for further characterization, and to determine the need for image guided fine needle aspiration. Dictated by: Bharath Feng M.D. on 07/10/2016 at 8:26 Approved by: Bharath Feng M.D. on 07/10/2016 at 8:38 X-RAY CHEST ONE VIEW, PORTABLE IMPRESSION: New moderate dependent left pleural effusion is of uncertain etiology, with presumed retrocardiac compressive atelectasis. Superimposed pneumonia cannot be excluded. Dictated by: Bharath Feng M.D. on 07/10/2016 at 7:27 Approved by: Bharath Feng M.D. on 07/10/2016 at 7:28 . 12-lead ECG EKG: Sinus tachycardia, heart rate 113, normal intervals, borderline normal axis , poor R-wave progression, no pathological Q waves or acute ischemic changes such as ST elevation or depression. . Additional Diagnostics: Echocardiogram Interpretation Summary: 1. Normal left ventricular size with mild to moderately increased wall thickness and normal systolic function (estimated EF is 60-65%). 2. The right ventricle is not optimally visualized to estimate size. However, the systolic function appears grossly normal. 3. No evidence for significant valvular pathology 4. Left pleural effusion There is no old study for comparison Reading Physician:04:24 PM . Assessment & Plan Assessment Melly Palmer is a 75-year-old female with a past medical history significant for inclusion body myositis, hemochromatosis, hypertension, hyperlipidemia, and prediabetes who presented to [facility] Emergency Department acute onset substernal chest pain on 07/09/16. Assessment: 1. Acute loculated and septated left pleural effusion, present on admission. Active. 2. History of recent bronchitis on glucocorticoids, present on admission. Presumed stable. 3. Acute episode of hemoptysis, present on admission. Resolved. 4. Right basilar lung mass, present on admission. Stable. Impression: The patient presented afebrile with substernal pleuritic chest pain radiating to left shoulder and left breast with accompanying shortness of breath. Patient was noted to have a leukocytosis which is thought to be secondary to glucocorticoid therapy. Her pro-calcitonin has been negative. She is on minimal oxygen. The chest pain the patient has experienced has a reproducible component in the left upper chest. The patient had one episode of hemoptysis thought to be related to her recent diagnosis of bronchitis for which she was placed on dexamethasone that is now being tapered. Incidentally, the patient has a right basilar lung mass that is stable in size and appearance and being followed with serial CT scans. The patient is a former smoker with a 40 to 45- pack-year history. She has an appointment to establish care and workup her right lung mass with [facility] pulmonology next month. Differential diagnosis of left pleural effusion includes: Exudative effusion ( malignant, infectious: abscess vs fungal PNA vs unlikely bacterial PNA, inflammatory) versus transudative effusion (unlikely CHF based on echocardiogram) versus hemothorax versus PE which was ruled out with recent CTA. Again CTA demonstrated no evidence of PE and a loculated moderate-sized basal and lateral left pleural effusion, as above. An ultrasound was performed which revealed a small loculated, septated left pleural effusion. Echocardiogram revealed preserved LV function with EF of 60-65% and mild to moderately increased wall thickness, normal RV function and left pleural effusion, as above. Recommendations: 1. Discontinue azithromycin 500 mg IV once the patient has received a total of 1.5 g (one more day of therapy). 2. Continue to taper dexamethasone as follows: 1.5 mg every other day 5 days, 1 mg every other day 5 days, 0.5 mg every other day 5 days then stop. 3. Based on ultrasound, the left pleural effusion is not amenable for IR guided thoracentesis. Hold off on surgical consult for chest tube placement versus VATS as ultrasound demonstrated a very small loculated, septated pleural effusion and the patient is an elderly, frail, high risk patient due to her comorbidities. 4. Continue to monitor the patient and if she continues to do well clinically have her plan to follow up with [facility] pulmonology in [place] at her scheduled appointment in August for full workup including possible bronchoscopy. Instruct the patient that if she were to have recurrent symptoms including shortness of breath, hemoptysis, or significant chest pain to go straight to the emergency department. If she does not continue to improve clinically we may consider a bronchoscopy while inpatient to begin pulmonology workup. Thank you for this most interesting consult. We will continue to follow along with you. . Problems: VTE Mechanical Devices: Intermittant Pneumatic CD Resuscitation Status: DNR/DNI:Do Not Resuscitate/Intubate Attending Statement The patient was seen and examined together with Dr. Manning on 07/12/2016 and I agree with the history, exam and plan as outlined in the note above. Ivelisse Manning DO Jul 12, 2016 13:49 Isael Tony MD Jul 20, 2016 10:57 7. Gastroesophageal reflux disease, chronic. Presumed stable. - Held Nexium as FDA warnings that this may increase risk of heart attack and stroke. - Ordered famotidine 40 mg twice a day, Tums and Maalox as needed. - GI cocktail has worked in the past for acid reflux may resort to this if the above is not effective. 8. Inclusion body myositis, chronic. Presumed stable. - Continue Mycophenolate mofetil 1000 mg twice a day and vitamin B6 100 mg daily. 9. Restless leg syndrome, chronic. Presumed stable. - Continue gabapentin daily at bedtime and tramadol 50 mg every 6 hours as needed for pain. 10. Peripheral vascular disease status post arthroplasty, chronic. Presumed stable. - Continue pentoxifylline 400 mg 3 times a day with meals. 11. Hypothyroidism, chronic. Presumed stable. - Continue levothyroxine 100 g daily at bedtime. 12. Hemochromatosis, chronic. Presumed stable. - Monitor hemoglobin and hematocrit daily. 13. Overactive bladder, chronic. Presumed stable. - Continue Detrol LA 4 mg daily. 14. Pleuritis secondary to somatic dysfunction. - Patient responded well to OMT . Problems: VTE Mechanical Devices: Intermittant Pneumatic CD Resuscitation Status: DNR/DNI:Do Not Resuscitate/Intubate Ivelisse Manning DO Jul 12, 2016 13:49
[2016-07-12] MEDS ORDERED: MeTOProlol XL 25 mg ER24 Tablet PO SCH (21:00)
[2016-07-13 01:40] VITALS: BP 138/78; PULSE 112; RESP 22; O2SAT 93
[2016-07-13] MEDS ORDERED: ALPRAZolam 0.5 mg Tablet PO ONE (02:55)
[2016-07-13] MEDS: MYCOPHENOLATE MOFETIL 500 MG PO SCH (03:15)
[2016-07-13 04:20] VITALS: PULSE 95
[2016-07-13 07:14] LABS: BASOPHILS % (AUTO) 0.1 % (0-3); EOSINOPHILS % (AUTO) 0.5 % (0-5); MONOCYTES % (AUTO) 9.1 % (4-12); Mean Corpuscular Hemoglobin 26.8 pg (27.0-35.0); Mean Corpuscular Volume 87.3 fL (81-100); NEUTROPHILS % (AUTO) 86.5 % (40-74); Platelet Count 403 bil/L (150-400)
--- NOTE | 2016-07-13 07:23 | NUR ---
Anxiety: Pt with increased anxiety through the night, with rapid shallow breathing during these episodes. Usually able to relax with RN encouraging relaxation breathing. Pt requested to dangle at bedside several times, was assisted with this as staff stayed by pt's side for safety, as pt has decreased strength. At about 0300, pt's anxiety was increased and not readily following RN encouragement to slow breathing. MD was called and order given for one time Xanax. Pt also received Tramadol for reported back pain. Changed out the pt's bed for a P500 bed as pt is a q2 turn and didn't like the bed she was in. During this episode, pt's O2 sats also decreased to 88-89% on 2L NC. Pt did allow staff to place an oxymask on her at 5L. RT was to the room to assess pt at this time also. Pt was able to fall asleep and oxygen sats improved, O2 eventually turned back down to 2-3L with the oxymask.
[2016-07-13] MEDS: Pentoxifylline 400 mg ER12 Tablet PO SCH ×2 (08:00→12:00)
[2016-07-13] MEDS: Tolterodine ER 4 mg ER24 Capsule PO SCH (08:30)
[2016-07-13] MEDS: Polyethylene Glycol (PEG) 17 Gm Powder PO SCH (08:30)
[2016-07-13] MEDS: Azithromycin Inj 500 MG in Dextrose 5% w/Vial Mate 250 ML IV SCH (09:14)
[2016-07-13 09:18] VITALS: BP 109/73; PULSE 109; RESP 26; O2SAT 88
[2016-07-13] MEDS ORDERED: Dexamethasone 4 mg/mL Inj IVPUSH ONE (09:50)
[2016-07-13] MEDS ORDERED: Dexamethasone 4 mg/mL Inj ONE (09:57)
[2016-07-13] MEDS ORDERED: Hydrocortisone 125 mg/mL 2 mL Inj IVPUSH ONE (10:00)
--- NOTE | 2016-07-13 10:00 | NUR ---
Transfer to ICU Patient was unable to respond and thrashing head from side to side. Patient supplemental oxygen was in the low 80's and oxygen was advanced to 4L/minute. Patient saturation where then 91%. shortly after oxygen decreased again and MD's were in room and ordered STAT orders and moved to ICU room 2019. Patient report given to Jaqueline Aguilera in ICU.
[2016-07-13] MEDS ORDERED: Etomidate 2 mg/mL 20 mL Inj IV ONE (10:09)
[2016-07-13] MEDS ORDERED: fentaNYL 2,500 mCg/250 mL 2,500 MCG in IV Premix 1 EACH IV SCH (10:14)
[2016-07-13] MEDS ORDERED: Norepineph 8,000 mCg/250 mL NS 8,000 MCG in IV Premix 1 EACH IV SCH (10:16)
[2016-07-13] MEDS ORDERED: Sodium Chloride LOK Flush 10 mL Syringe IVFLUSH PRN ×2 (10:25)
[2016-07-13] MEDS ORDERED: EPINEPHrine 0.1 mg/mL 10 mL Syringe ONE (10:33)
[2016-07-13] MEDS ORDERED: EPINEPHrine 1 mg/mL Inj 10 MG in 0.9% Sodium Chloride 240 ML IV SCH (10:35)
[2016-07-13] MEDS ORDERED: fentaNYL-PF 50 mCg/mL 2 mL Inj ONE (10:46)
--- NOTE | 2016-07-13 10:47 | DRSVH ---
PROCEDURE: X-RAY CHEST ONE VIEW, PORTABLE ([id number]) INDICATIONS: SOB TECHNIQUE: One view of the chest was acquired. COMPARISON: [facility], CR, XR CHEST 1VW (PORTABLE), 07/11/2016, 10:08. FINDINGS: Surgical changes and devices: Cholecystectomy clips. Lungs and pleura: Loculated left pleural effusion similar to prior examination and there is dense mid left lung and basilar air space opacity. Air space opacity within the right lung base unchanged an air space opacity within the mid right lung has resolved. No pneumothorax. Mediastinum: Mediastinal contours appear normal. Heart size is normal. Bones and chest wall: No suspicious bony lesions. Overlying soft tissues appear unremarkable. IMPRESSION: 1. Loculated left pleural effusion and left lung dense consolidation likely related to compressive at electasis but inflammatory process or neoplasm can be excluded. Followup recommended. 2. Right basilar atelectasis versus aspiration or pneumonia. Dictated by: Khai MARTINEZ Interpreted: Mary Card MD on 07/13/2016 at 10:45 Transcribed by: MAULIK on 07/13/2016 at 10:47 Approved by: Mary Card MD, PhD on 07/13/2016 at 11:01
[2016-07-13] MEDS ORDERED: LORazepam 100 mg/100 mL NS 100 MG in IV Premix 100 EACH IV SCH (10:57)
--- NOTE | 2016-07-13 11:15 | NUR ---
Time of [address] Manning
--- NOTE | 2016-07-13 11:39 | PROCED ---
[address] [address] PROCEDURE NOTE PATIENT: RAI LOWERY : 1940 MR#: [id number] ADMIT: 07/10/2016 JOB ID: [id number] DATE OF SERVICE: PREOPERATIVE DIAGNOSIS(ES): POSTOPERATIVE DIAGNOSIS(ES): SURGEON: Spencer Jay MD. INDICATIONS: The patient presents somnolent with poor ventilation and had apposition with BiPAP, for intubation at the request of Dr. Tony and the patient's son. DESCRIPTION OF PROCEDURE: In the supine head-up position, the patient was pre-oxygenated with a bag-valve mask system. During this time Dr. Cavazos placed a 22-gauge IV in her left shoulder. Suction, MAC 3 blade, 7.5 endotracheal tube, CO2 monitor, tape and a ventilator were all prepared for use. The patient was administered 60 mg of intravenous etomidate. Patient became apneic. A MAC 3 blade was used to identify the epiglottis and the cords, and a 7.5 endotracheal tube was easily placed into the trachea. CO2 was noted to be coming from the tube after the bag-valve mask system was attached to the endotracheal tube. Bilateral air entry was confirmed by Dr. Tony. Dr. Tony will supervise and evaluate the placement of the endotracheal tube in the trachea with the use of an x-ray. The patient tolerated the procedure well. Thank you for the consultation.
--- NOTE | 2016-07-13 11:57 | NUR ---
Medications Multiple medications given in effort to sustain patients life with intubation and hypotension, tachycardia per son request. Ordering Physicians were Dr. Yan and Dr. Liriano. Patient's son then changed his mind and requested patient be extubated to comfort. Multiple medication given for compassionate extubation. (see orders in chart.)
--- NOTE | 2016-07-13 12:06 | NUR ---
CCU/BP/intubation Pt arrived in CCU from [facility] at 0945. Pt unresponsive, RASS -3, on 8L oxymask sats in the low 90s. BP 70s/50s. MDs at bedside, per pts son aleena mo to intubate. Anesthesia intubated, IV therapy put in PIV and was getting ready to put in PICC line. Norepi started, then push of epi (given by MD). Pt's son decided to withdrawl care, extubated at 1050, switched to comfort measures. Fentanyl 100mcg push and gtt set up (see CCU flow sheet) and 6mg of ativan given per Dr Tony/Dr Manning who were at bedside. Ativan gtt never started because IV pushes used, pt passed before drip came up from pharmacy.
--- NOTE | 2016-07-13 17:40 | PROG NOTE ---
[address] [address] PROGRESS NOTE PATIENT: RAI LOWERY : 1940 MR#: [id number] ADMIT: 07/10/2016 JOB ID: [id number] DATE: 07/13/2016 PULMONARY CRITICAL CARE FOLLOWUP NOTE: PROBLEM: 1. Lung mass. 2. Pleural effusion. 3. Encephalopathy. 4. Hypoxemia. 5. Shock. SUBJECTIVE: I entered the patient's room to find the patient encephalopathic, intermittently responsive or thrashing her head around purposelessly with some movement of arms and legs. O2 saturation was 84%. Apparently the patient was having problems with her breathing for the last few hours. OBJECTIVE: Blood pressure running at about 106/64. Pulse in the 120s and irregular. Pulse is irregular but full. Mental status: When confronted by voice or by touch the patient seemed to gaze toward the examiner, but never really made eye contact, and there was no cognitive function. Conjunctivae were pale. Chest showed fairly good breath sounds on the right with a few scattered crackles. There was maybe some breath sounds at the left apex but the remainder of lung garcia was quiet. Heart showed a rapid irregular rate. Heart tones seemed normal. Abdomen was soft. Quiet. Slightly distended. Extremities: No pretibial edema. PLAN: The patient was placed on a higher oxygen concentration. Seemed to help transiently. Chest x-ray was ordered stat and showed a large pleural effusion on the left with near complete opacification of the left lung. Case was discussed with Radiology. They were willing to come up stat to do ultrasound and thoracentesis if warranted. However, the patient's condition he continued to deteriorate with no improvement. In it was obvious he need to be transferred to the intensive care unit. Arrangements were made for transfer to the intensive care unit. Transferred expeditiously. Upon arrival in the intensive care unit IV was found not to be working. Attempts at placement of peripheral 22-gauge IV were unsuccessful. It was also apparent that she would require intubation. It was felt that possibly intubation would have to be done without sedation. Anesthesia was called and responded emergently. Attempts at 2 IVs in her feet were unsuccessful with the vein being cannulated but the vein and immediately blowing. They did find a small peripheral vein over her left anterior shoulder which was cannulated. She was given etomidate and intubated expeditiously. Throughout this blood pressure was running 40/20 to maybe 60/30 with pulses in the 120-130s. Without venous access we ended up giving her some IV epinephrine through a small peripheral vein in her right arm which was cannulated by the IV therapy team. (It should be noted that throughout this time multiple discussions with it being held with the son. In spite her of her and known wishes not to be intubated, he felt he should over-ride that order and have her intubated so that the possibility of any heroic measures could be entertained to the see if we could keep her alive. Specifically he was hoping that we could stabilize her breathing and her blood pressure and proceed with a thoracentesis which might result in marked improvement if not a complete amelioration of her symptoms.) In spite of fluids wide open as best they could be delivered through two 22-gauge needles and IV epinephrine, the patient remained in extremis with severe hypotension. Immediately after epinephrine blood pressure alayna to 180s over about 110s. She was sedated with fentanyl once the etomidate was wearing off. I discussed the situation again with the son, explaining that the patient was remaining in rather refractory shock. Continued with IV fluids. Arrangements were made with the IV team for PICC access. Veins on her right arm were too small. Veins on her left arm would accept a PICC line. Evaluation of the right radial artery by ultrasound showed minimal pulsations. Mechanical ventilation was instituted with an FiO2 of 35%, PEEP of 5, rate of 18, tidal volume of 400, resulting in O2 saturations in the mid 90s, and sometimes as high as 96, but more often in the 91% to 92% range. However, her condition continued to deteriorate in spite of the fluids and the one intermittent bolus of epinephrine. At that point it was apparent that she would not recover without heroic measures and the son pointed out that she would not wish this and he at that point decided to forego further measures and keep her comfortable, respecting her previous wishes, as this attempt at heroic measures was obviously not going to be successful. The patient was given fentanyl as well as lorazepam to control both pain and dyspnea, and anxiety. She did have some transient return of some semblance of motor activity requiring holding the patient down while fentanyl was obtained. She was given fentanyl with good effect. Started on infusion with good effect. Also given IV Ativan. At this point the son had a neighbor come for emotional support. It was decided to withdraw all efforts, keep the patient comfortable, and extubate her. This was accomplished without incident. After extubation she had a transient episode of agonal respirations but at 11:15 a.m. No autopsy was requested. TIME: Time spent in critical care: 1 hour and 30 minutes.
--- NOTE | 2016-07-13 21:13 | PCM.DC.MEX ---
Discharge Summary Date of Service Jul 13, 2016 Dates of Hospitalization Date of Hospital Admission Jul 10, 2016 at 11:02 Date of Expiration: Jul 13, 2016 Time of Expiration: 11:15 Providers: Admitting Physician: Kirsten Keller DO Primary Care Physician: Jamey Presley MD Attending Physician: Kirsten Keller DO Diagnosis at Time of Acute hypoxic respiratory failure Additional Diagnosis Acute hypoxic respiratory failure Obstructive shock Left pleural effusion Acute chest pain Tachycardia Masslike opacity within the right lower lobe Chronic problems: History of recent bronchitis on steroids Hyperlipidemia, chronic Hypertension, chronic Prediabetes, chronic Depression and anxiety, chronic. Gastroesophageal reflux disease, chronic. Inclusion body myositis, chronic. Restless leg syndrome, chronic. Peripheral vascular disease status post arthroplasty, chronic. Hypothyroidism, chronic. Hemochromatosis, chronic. Overactive bladder, chronic. Pleuritis secondary to somatic dysfunction Procedures XRay, CTs & MRIs CT ANGIO CHEST PULMONARY EMBOLISM IMPRESSION: 1. No evidence for central pulmonary embolism. 2. Partially loculated moderate left pleural effusion is of uncertain etiology, with patchy left lower lobe compressive atelectasis. 3. 3.8 x 3.0 cm posterior right lower lobe subpleural airspace opacity is of uncertain etiology. Differential diagnoses would include localized pneumonia versus underlying lung neoplasm. Pulmonary infarct is considered unlikely in the absence of any pulmonary embolism. 4. 3.1 x 2.5 cm complex cystic nodule in the left thyroid. Recommend dedicated thyroid ultrasound for further characterization, and to determine the need for image guided fine needle aspiration. Approved by: Bharath Feng M.D. on 07/10/2016 at 8:38 X-RAY CHEST ONE VIEW, PORTABLE IMPRESSION: New moderate dependent left pleural effusion is of uncertain etiology, with presumed retrocardiac compressive atelectasis. Superimposed pneumonia cannot be excluded. Approved by: Bharath Feng M.D. on 07/10/2016 at 7:28 PROCEDURE: X-RAY CHEST ONE VIEW, PORTABLE IMPRESSION: 1. Moderate to large loculated left pleural effusion similar to prior CT scan. 2. Persistent basilar airspace opacity likely compressive atelectasis. Continued radiographic surveillance to resolution is recommended. 3. Masslike opacity within the right lower lobe is unchanged. Continued radiographic surveillance to resolution is recommended. Approved by: Greg Fontana M.D. on 07/11/2016 at 11:31 PROCEDURE: US CHEST/PLEURAL SONOGRAM IMPRESSION: Loculated, septated small left pleural effusion. Approved by: Jayashree Whitmore M.D. on 07/11/2016 at 19:27 PROCEDURE: X-RAY CHEST ONE VIEW, PORTABLE IMPRESSION: 1. Loculated left pleural effusion and left lung dense consolidation likely related to compressive atelectasis but inflammatory process or neoplasm can be excluded. Followup recommended. 2. Right basilar atelectasis versus aspiration or pneumonia. Approved by: Mary Card MD, PhD on 07/13/2016 at 11:01 ECG 12 Lead EKG: Sinus tachycardia, heart rate 113, normal intervals, borderline normal axis , poor R-wave progression, no pathological Q waves or acute ischemic changes such as ST elevation or depression. . Cardiac Echo Impression Echocardiogram Report Interpretation Summary 1. Normal left ventricular size with mild to moderately increased wall thickness and normal systolic function (estimated EF is 60-65%). 2. The right ventricle is not optimally visualized to estimate size. However, the systolic function appears grossly normal. 3. No evidence for significant valvular pathology 4. Left pleural effusion There is no old study for comparison Reading Physician:04:24 PM Brief History From the history and physical performed by Dr. Ivelisse Manning on 07/10/2016: Melly Palmer is a 75-year-old female with a past medical history significant for inclusion body myositis, hemochromatosis, hypertension, hyperlipidemia, and prediabetes who presented to [facility] emergency Department for acute onset substernal chest pain. The patient reports that yesterday morning she began feeling "funny." She then began to express chest pain yesterday evening prior to bed. She describes the chest pain is substernal in location. The pain is sharp in quality and continuous. The patient had a pressure component when she arrived to the ER. She reports that she can change positions to make the pain less intense. She had accompanying left shoulder pain, left breast pain, and shortness of breath. She denies headache, vision changes, nausea, vomiting, palpitations, or diaphoresis. She has never had this before. She took Tylenol at home which gave her mild relief. Patient also endorses hemoptysis related to her recent bronchitis of which she is on dexamethasone and plans for follow-up/establish care with pulmonology next month. Of note, there is a reproducible component of her chest pain upon palpation of left upper chest. She has no other complaints. Vital signs in the ER: Temperature 36.6. Pulse 114. Respiratory rate 24. Blood pressure 95/41. Pulse ox 92% on room air. She was given 2 L NS, aspirin 324 mg 1, ketorolac 50 mg IV 1, and levofloxacin [address] 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 . Hospital Course Melly Palmer is a 75-year-old female with a past medical history significant for inclusion body myositis, hemachromatosis, hypertension, hyperlipidemia, and prediabetes who presented to [facility] emergency Department for acute chest pain. 1. Acute hypoxic respiratory failure -Oxygen saturation dropped to 88% on 3L by nasal cannula -Patient became encephalopathic and responded only with eye opening to verbal stimuli -A stat chest x-ray was performed and showed worsening of left pleural effusion and near opacification of left hemithorax -Patient was transferred to the CCU with pulmonology at the bedside -Anesthesia was called, and patient was intubated and then placed on mechanical ventilation. -Patient's son decided that intubation and continued attempts at resuscitating the patient would be against her wishes. He decided to proceed with comfort measures and comfort extubation. -The patient after being extubated. 2. Obstructive shock -See above -During intubation, her blood pressure dropped to the range of 40/20 to 60/30 with pulses in the 120-130s. -Venous access was difficult. An IV bolus of epinephrine initially increased her blood pressure. IV fluid boluses were also given. However, the patient remained in shock. 3. Left pleural effusion, acute, present on admission. - Pleural chest ultrasound showed a loculated left pleural effusion. - Pulmonology consulted and followed. Their time and recommendations were appreciated. - Held off on surgical consultation as the patient had clinically improved on 4. Acute chest pain, present on admission. Improved. - Patient presented with substernal chest pain radiating to left shoulder and left breast with accompanying shortness of breath. Of note, there was a reproducible component of chest pain in left upper chest and patient did have hemoptysis related to recent bronchitis with plan for follow-up/establish care with pulmonology next month. - Cardiac risk factors include: Hypertension, hyperlipidemia, prediabetes, significant family history, age, and former smoker. - Differential diagnosis included: ACS versus costochondritis versus pleural effusion versus musculoskeletal. Ruled out pulmonary emboli. - EKG showed no pathological Q waves or acute ischemic changes, as above. - Troponin initially elevated at 0.055. Serial troponin 3 and downtrended. - CTA showed no evidence of PE. - Echocardiogram showed normal EF, normal systolic function, and no valvular abnormalities. A left pleural effusion was noted. - Masslike opacity within the right lower lobe and left pleural effusion were likely contributing to, if not the source of, patient's chest pain. - Received aspirin 324 mg 1. Continued aspirin 81 mg daily. - Continued beta isabella with metoprolol succinate 25 mg daily. - Ordered sublingual nitroglycerin and morphine as needed for chest pain. - Ordered PRN EKG as needed for chest pain. - Discussed patient with cardiology, Dr. Mortensen, who saw the patient and recommended addressing pulmonary concerns before doing a stress test. Outpatient wedger and gluer was . Considered NM stress test as an outpatient. 5. Tachycardia, acute. - Atrial fibrillation and atrial flutter noted on telemetry once that converted back to sinus rhythm. Otherwise, sinus tachycardia with PACs. - Likely secondary to pneumonia and pleural effusion. - Patient on metoprolol succinate 25 mg once daily at bedtime and increased to 50 mg once daily. - Patient given diltiazem 20 mg IV push on 07/11/16 and converted back to sinus rhythm - Continued to monitor on telemetry 6. Masslike opacity within the right lower lobe. - Differential diagnosis includes but not limited to: localized pneumonia versus underlying lung neoplasm - Patient was on azithromycin 500 mg IV Chronic problems: 7. History of recent bronchitis on steroids. Presumed stable. - Patient had planned follow-up/establish care next month with pulmonology [facility] in [place]. - Leukocytosis thought to be secondary to chronic glucocorticoid therapy and possible pneumonia. - Started a dexamethasone taper 1.5 mg every other day 5 days, 1 mg every other day 5 days, 0.5 mg every other day 5 days then stop - Received levofloxacin 750 mg x 1 in ED. Started azithromycin 500mg IV on 07/11 8. Hyperlipidemia, chronic. Presumed stable. - Fasting lipid panel: triglycerides 56, total cholesterol 139, Ll 73.8, HDL 54 - Continued atorvastatin equivalent per pharmacy. 9. Hypertension, chronic. Presumed stable. - Continued losartan 25 mg daily and metoprolol succinate 50 mg daily at bedtime. 10. Prediabetes, chronic. Presumed stable. - Hemoglobin A1c 5.7% on 11/2015. Repeat hemoglobin A1c 5.8% - Continued heart healthy/carbohydrate consistent diet 11. Depression and anxiety, chronic. Presumed stable. - Continued mirtazapine 7.5 mg daily. 12. Gastroesophageal reflux disease, chronic. Presumed stable. - Held Nexium as FDA warnings that this may increase risk of heart attack and stroke. - Ordered famotidine 40 mg twice a day, Tums and Maalox as needed. - GI cocktail had worked in the past for acid reflux. 13. Inclusion body myositis, chronic. Presumed stable. - Continued Mycophenolate mofetil 1000 mg twice a day and vitamin B6 100 mg daily. 14. Restless leg syndrome, chronic. Presumed stable. - Continued gabapentin daily at bedtime and tramadol 50 mg every 6 hours as needed for pain. 15. Peripheral vascular disease status post arthroplasty, chronic. Presumed stable. - Continued pentoxifylline 400 mg 3 times a day with meals. 16. Hypothyroidism, chronic. Presumed stable. - CT chest showed a complex cystic nodule in the left thyroid - Continued levothyroxine 100 g daily at bedtime. - TSH within normal limits - Thyroid ultrasound as an outpatient was recommended 17. Hemochromatosis, chronic. Presumed stable. - Monitored hemoglobin and hematocrit daily. 18. Overactive bladder, chronic. Presumed stable. - Continued Detrol LA 4 mg daily. 19. Pleuritis secondary to somatic dysfunction -Patient had responded well to OMT Exam Test 07/10/16 06:20 07/10/16 09:10 07/10/16 11:05 07/11/16 06:40 D-Dimer 1.5mg/L (<0.50) Hemoglobin A1c 5.8% (4.8-5.6) Pro-B-Type Natriuretic Peptide 476.5pg/mL (0-301) Lactic Acid Level 1.4mmol/L (0.4-2.0) Urine Color Yellow (YELLOW) Urine Appearance Clear (CLEAR,HAZY) Urine pH 5.5 (5.0-8.0) Urine Specific [place] 1.078 (1.003-1.035) Urine Protein Negativemg/dL (NEG,TRACE) Urine Glucose (UA) Negativemg/dL (NEGATIVE) Urine Ketones Negativemg/dL (NEGATIVE) Urine Occult Blood Negative (NEGATIVE) Urine Nitrite Negative (NEGATIVE) Urine Bilirubin Negative (NEGATIVE) Urine Urobilinogen Normalmg/dL (NORMAL) Urine Leukocyte Esterase Negative (NEGATIVE) Urine RBC 0-2/hpf (0-2) Urine WBC 0-5/hpf (0-5) Urine Epithelial Cells Few/hpf (NONE-MOD) Urine Crystals None seen (NONE SEEN) Urine Bacteria Few/hpf (NONE-FEW) Urine Hyaline Casts None/lpf (NONE) Urine Granular Casts None seen (NONE SEEN) Urine Waxy Casts None seen (NONE SEEN) Urine Red Blood Cell Casts None seen (NONE SEEN) Urine White Blood Cell Casts None seen (NONE SEEN) Urine Mucus None seen (None Seen) Urine Trichomonas None seen (NONE SEEN) Urine Yeast None (NONE SEEN) Urinalysis Comment None Urine Culture Reflexed Not indicated Prothrombin Time 11.2sec (8.1-12.5) Prothromb Time International Ratio 1.05ratio Triglycerides Level 56mg/dL (0-149) Cholesterol Level 139mg/dL (100-199) LDL Cholesterol, Calculated 73.800mg/dL (0-99) VLDL Cholesterol 11.200mg/dL HDL Cholesterol 54mg/dL (>39) Cholesterol/HDL Ratio 2.57 (0.0-4.4) Thyroid Stimulating Hormone (TSH) 1.010uIU/mL (0.450-4.500) Test 07/13/16 06:30 07/13/16 09:39 White Blood Count 23.0th/mm3 (3.8-10.1) Red Blood Count 5.03mil/mm3 (3.90-5.20) Hemoglobin 13.5g/dL (12.0-15.6) Hematocrit 43.9% (35.0-46.0) Mean Corpuscular Volume 87.3fL (81-100) Mean Corpuscular Hemoglobin 26.8pg (27.0-35.0) Mean Corpuscular Hemoglobin Concent 30.8% (32.0-37.0) Red Cell Distribution Width 15.6% (12.3-15.4) Platelet Count 403bil/L (150-400) Neutrophils (%) (Auto) 86.5% (40-74) Lymphocytes (%) (Auto) 3.5% (14-46) Monocytes (%) (Auto) 9.1% (4-12) Eosinophils (%) (Auto) 0.5% (0-5) Basophils (%) (Auto) 0.1% (0-3) Sodium Level 139mEq/L (134-144) Potassium Level 4.4mEq/L (3.5-5.2) Chloride Level 99mEq/L (97-108) Carbon Dioxide Level 24mmol/L (18-29) Blood Urea Nitrogen 10mg/dL (8-27) Creatinine < 0.30mg/dL (0.57-1.00) Estimat Glomerular Filtration Rate 312mL/min (>59) Glucose Level 136mg/dL (60-99) Calcium Level 9.5mg/dL (8.5-10.1) Magnesium Level 1.7mg/dL (1.6-2.6) Total Bilirubin 0.3mg/dL (0.0-1.2) Aspartate Amino Transf (AST/SGOT) 47U/L (0-50) Alanine Aminotransferase (ALT/SGPT) 30U/L (0-32) Alkaline Phosphatase 195U/L (25-165) Total Protein 6.0g/dL (6.4-8.4) Albumin 3.0g/dL (3.4-5.0) Procalcitonin 0.08ng/mL (0.00-0.08) Troponin T < 0.010ug/L (0.0-0.011) Time spent 30 minutes Attending Statement I have seen and evaluated patient at bedside in addition to directly supervising care provided by resident physician in this unfortunate case., None the less, i feel pt's wishes were honored to the most part. In spite of breif intuibation, she appears to have passed without significant discomfort of convulsion due to futile medical intervention. I agree with above documentation. copies to: Jamey Presley MD, Marissa L DO Jul 13, 2016 21:13 Epifanio Quintana DO Jul 15, 2016 08:20
== END 2016-07-13 11:15 | disposition expired | DRG 208 ==
LOC: SED 06:02 → MPC 11:02 → PCC 07-13 09:33 → CCU 07-13 09:54
PROVIDERS: ADMIT Neuromusculoskeletal Medicine & OMM; ATTEND Neuromusculoskeletal Medicine & OMM
PROC: 5A1935Z Respiratory Ventilation, Less than 24 Consecutive Hours (ICD-10-PCS; principal; 2016-07-13)
PROC: 0BH17EZ Insertion of Endotracheal Airway into Trachea, Via Natural or Artificial Opening (ICD-10-PCS; 2016-07-13)
DX: J90 Pleural effusion, not elsewhere classified (principal); J18.9 Pneumonia, unspecified organism; J96.01 Acute respiratory failure with hypoxia; G93.40 Encephalopathy, unspecified; I48.92 Unspecified atrial flutter; I47.1 Supraventricular tachycardia; R57.9 Shock, unspecified; J40 Bronchitis, not specified as acute or chronic; G72.41 Inclusion body myositis [IBM]; I10 Essential (primary) hypertension; E78.5 Hyperlipidemia, unspecified; K21.9 Gastro-esophageal reflux disease without esophagitis; E03.9 Hypothyroidism, unspecified; Z87.891 Personal history of nicotine dependence; I73.9 Peripheral vascular disease, unspecified; G25.81 Restless legs syndrome; E83.119 Hemochromatosis, unspecified; Z66 Do not resuscitate; R73.03 Prediabetes; N32.81 Overactive bladder